=== PATIENT | female | born 1935 | race Asian ===

== ENCOUNTER 2017-08-13 14:18 | Inpatient (IN) | payer MEDICARE, OTHER ==
[~2017-08-13] VITALS: Ht 157.5 cm; Wt 54.4 kg
--- NOTE | 2017-08-13 14:24 | Emergency Room Report ---
History of Present Illness General Chief Complaint: Multiple Trauma/Fall Present Illness HPI Patient is an 82-year-old female brought in by EMS after fall at assisted living. The patient presents having increased pain to her head. She also has increased pain to her left hip. The patient poorly has prior history of Parkinson's disease. Patient had normally been ambulatory. The patient reports having had inability to ambulate. She been noted to be taking medications for Parkinson's disease. The fall occurred just prior to arrival. The per EMS there is no loss of consciousness. The patient had been given morphine and Zofran by EMS. Allergies: Coded Allergies: No Known Allergies (Unverified , 08/13/17) Patient History Past Medical History: see triage record Reviewed Nursing Documentation: PMH: Agreed; PSxH: Agreed Review of Systems All Other Systems: negative except mentioned in HPI Physical Exam Vital Signs Date Time Temp Pulse Resp B/P (MAP) Pulse Ox O2 Delivery O2 Flow Rate FiO2 08/13/17 14:16 98.0 72 16 154/82 98 Room Air 98.1 Sp02 EP Interpretation: reviewed, normal General Appearance: normal inspection, well appearing, no apparent distress, alert, Chronically Ill Head: atraumatic ENT: normal ENT inspection, hearing grossly normal, normal voice Neck: normal inspection, full range of motion, supple, no bony tend Respiratory: normal inspection, lungs clear, normal breath sounds, no respiratory distress, no retraction, no wheezing Cardiovascular #1: regular rate, rhythm, no edema Gastrointestinal: normal inspection, normal bowel sounds, non tender, soft, no guarding, no hernia Genitourinary: no CVA tenderness Musculoskeletal: normal inspection, back normal, decreased range of motion - left hip external rotation and shortening. Neurologic: normal inspection, alert, responsive, speech normal Psychiatric: normal inspection, judgement/insight normal, mood/affect normal Skin: normal inspection, normal color, no rash Medical Decision Making Diagnostic Impression: Primary Impression: Fall Additional Impressions: Intertrochanteric fracture of left femur Pain Head contusion Parkinson disease ER Course Patient is a 82-year-old female presented after fall. Differential diagnosis included was not limited to neck fracture, CVA, close head injury, syncopal episode, basilar ischemia, hip fracture,. Because of complexity of patient's case laboratory testing and imaging studies were ordered. A CT imaging read by radiology showed noted to have a left intertrochanteric fracture. Patient was discussed with Dr. Luisito Blanc for for orthopedic consult. Dr. Emiliano Ryder was contacted for inpatient management. Labs Test 08/13/17 14:45 White Blood Count 9.3 K/UL (4.8-10.8) Red Blood Count 3.23 M/UL (4.20-5.40) Hemoglobin 10.8 G/DL (12.0-16.0) Hematocrit 31.4 % (37.0-47.0) Mean Corpuscular Volume 97 FL (80-99) Mean Corpuscular Hemoglobin 33.6 PG (27.0-31.0) Mean Corpuscular Hemoglobin Concent 34.6 G/DL (32.0-36.0) Red Cell Distribution Width 12.4 % (11.6-14.8) Platelet Count 262 K/UL (150-450) Mean Platelet Volume 5.0 FL (6.5-10.1) Neutrophils (%) (Auto) 79.1 % (45.0-75.0) Lymphocytes (%) (Auto) 16.0 % (20.0-45.0) Monocytes (%) (Auto) 4.0 % (1.0-10.0) Eosinophils (%) (Auto) 0.3 % (0.0-3.0) Basophils (%) (Auto) 0.5 % (0.0-2.0) Prothrombin Time 9.9 SEC (9.30-11.50) Prothromb Time International Ratio 0.9 (0.9-1.1) Activated Partial Thromboplast Time 28 SEC (23-33) Sodium Level 139 MMOL/L (136-145) Potassium Level 4.3 MMOL/L (3.5-5.1) Chloride Level 105 MMOL/L (98-107) Carbon Dioxide Level 30 MMOL/L (21-32) Anion Gap 4 mmol/L (5-15) Blood Urea Nitrogen 21 mg/dL (7-18) Creatinine 0.6 MG/DL (0.55-1.30) Estimat Glomerular Filtration Rate mL/min (>60) Glucose Level 107 MG/DL (74-106) Calcium Level 8.7 MG/DL (8.5-10.1) Total Bilirubin 0.4 MG/DL (0.2-1.0) Aspartate Amino Transf (AST/SGOT) 44 U/L (15-37) Alanine Aminotransferase (ALT/SGPT) 8 U/L (12-78) Alkaline Phosphatase 104 U/L (46-116) Total Protein 5.8 G/DL (6.4-8.2) Albumin 3.1 G/DL (3.4-5.0) Globulin 2.7 g/dL Albumin/Globulin Ratio 1.1 (1.0-2.7) Lipase 83 U/L (73-393) EKG Diagnostic Results Rate: normal - 76 Rhythm: NSR ST Segments: no acute changes Last Vital Signs Date Time Temp Pulse Resp B/P (MAP) Pulse Ox O2 Delivery O2 Flow Rate FiO2 08/13/17 14:16 98.0 72 16 154/82 98 Room Air 98.1 Status: improved Disposition: ADMITTED INPATIENT Condition: Dane Ramos Aug 13, 2017 14:24
[2017-08-13] MEDS ORDERED: ACETAMINOPHEN325 M1 ORAL (14:26)
[2017-08-13] MEDS ORDERED: MELATONIN5 M5 ORAL (14:26)
[2017-08-13] MEDS ORDERED: MELOXICAM15 MG PO (14:26)
[2017-08-13] MEDS ORDERED: SINEMET 25-1001 EAC1 ORAL (14:29)
[2017-08-13] MEDS ORDERED: ATORVASTATIN CA20 MG ORAL (14:29)
[2017-08-13] MEDS ORDERED: GABAPENTIN300 MG ORAL (14:29)
[2017-08-13] MEDS ORDERED: FAMOTIDINE20 MG ORAL (14:29)
[2017-08-13] MEDS ORDERED: MIRTAZAPINE15 M3 ORAL (14:29)
[2017-08-13 14:50] VITALS: BP 154/82
[2017-08-13 15:25] LABS: BASOPHILS % (AUTO) 0.5 % (0.0-2.0); EOSINOPHILS % (AUTO) 0.3 % (0.0-3.0); HEMATOCRIT 31.4 % (37.0-47.0); HEMOGLOBIN 10.8 G/DL (12.0-16.0); MEAN CORPUSCULAR VOLUME 97 FL (80-99); NEUTROPHILS % (AUTO) 79.1 % (45.0-75.0); PLATELET COUNT 262 K/UL (150-450); RED BLOOD COUNT 3.23 M/UL (4.20-5.40); RED CELL DISTRIBUTION WIDTH 12.4 % (11.6-14.8); WHITE BLOOD COUNT 9.3 K/UL (4.8-10.8)
[2017-08-13 15:35] LABS: INR 0.9 (0.9-1.1)
[2017-08-13 15:38] LABS: ANION GAP 4 mmol/L (5-15); BLOOD UREA NITROGEN 21 mg/dL (7-18); CALCIUM 8.7 MG/DL (8.5-10.1); CARBON DIOXIDE 30 MMOL/L (21-32); CHLORIDE 105 MMOL/L (98-107); CREATININE 0.6 MG/DL (0.55-1.30); POTASSIUM 4.3 MMOL/L (3.5-5.1); SODIUM 139 MMOL/L (136-145)
[2017-08-13 15:43] LABS: ALANINE AMINOTRANSFERASE 8 U/L (12-78); ALBUMIN 3.1 G/DL (3.4-5.0); ALBUMIN/GLOBULIN RATIO 1.1 (1.0-2.7); ALKALINE PHOSPHATASE 104 U/L (46-116); ASPARTATE AMINO TRANSFERASE 44 U/L (15-37); BILIRUBIN,TOTAL 0.4 MG/DL (0.2-1.0)
--- NOTE | 2017-08-13 16:03 | Diagnostic Imaging Report ---
Indication: Head and left hip pain, status post fall Technique: spiral acquisitions obtained through the brain. Angled axial and coronal 5 x 5 mm slices were reconstructed. No IV contrast utilized. Radiation dose was minimized using automated exposure control Total dose length product 1432.38 mGycm. CTDIvol(s) 70.38 mGy Comparison: none FINDINGS: No acute hemorrhage or edema. No mass effect or midline shift. There is age-related enlargement of the ventricles and extra axial CSF spaces. There is periventricular deep white matter ischemic change. Normal vega-white differentiation. Visualized orbits are unremarkable. Visualized sinuses are unremarkable. Intact calvarium. IMPRESSION: Chronic and age-related changes. Negative for acute intracranial bleed or mass effect The CT scanner at [facility] is accredited by the [employer] and the scans are performed using protocols designed to limit radiation exposure to as low as reasonably achievable to attain images of sufficient resolution adequate for diagnostic evaluation
--- NOTE | 2017-08-13 16:09 | Diagnostic Imaging Report ---
Indication: Left hip pain status post fall Technique: No IV contrast, per trauma protocol Spiral acquisitions obtained through the pelvis and left hip Multiplanar reconstructions were generated. Total dose length product 348 mGycm. CTDIvol(s) 9 mGy. Radiation dose was minimized using automated exposure control Comparison: none Findings: There is a comminuted slightly angulated intertrochanteric fracture of the left hip, extending into the femoral neck. No associated pelvic fracture demonstrated. There is a right hip hemiarthroplasty prosthesis in place. There is slight contusion of the subcutaneous fat. There are degenerative changes of the lumbosacral spine The uterus demonstrates multiple small masses, consistent with uterine fibroids. The rectum is somewhat distended by feces, measuring up to 8 cm transverse dimension. The bladder is distended Impression: Positive for left hip intertrochanteric fracture Minimal overlying soft tissue contusion Evidence of prior right hip surgery Degenerative changes, as described Possible rectal fecal impaction Fibroid uterus Distended urinary bladder Findings discussed by phone previously with Dr. Lane in the emergency room The CT scanner at [facility] is accredited by the [employer] and the scans are performed using protocols designed to limit radiation exposure to as low as reasonably achievable to attain images of sufficient resolution adequate for diagnostic evaluation.
[2017-08-13] MEDS ORDERED: Morphine Sulfate 2mg/ml Inj ONE (17:13)
[2017-08-13] MEDS ORDERED: Miralax 17gm pkt ORAL PRN (17:15)
[2017-08-13] MEDS ORDERED: Mylanta II UD 30ml ORAL PRN (17:15)
[2017-08-13] MEDS ORDERED: LORazepam Inj 2mg/ml 1ml IV PRN (17:15)
[2017-08-13] MEDS ORDERED: Zolpidem 5mg tab ORAL PRN (17:15)
[2017-08-13] MEDS: Morphine Sulfate 4mg/ml Inj IVP PRN ×2 (17:25→23:38)
[2017-08-13 18:13] VITALS: BP 124/74
[2017-08-13] MEDS: D5 1/2NS 1,000 ML IV SCH (18:53)
--- NOTE | 2017-08-13 19:29 | Consultation ---
History of Present Illness General Chief Complaint: Multiple Trauma/Fall Present Illness Allergies: Coded Allergies: No Known Allergies (Unverified , 08/13/17) Medication History Scheduled Atorvastatin Calcium* (Atorvastatin Calcium*), 10 MG ORAL BEDTIME, (Reported) Carbidopa/Levodopa 25-100 Mg* (Sinemet 25-100 Mg Tablet*), 1 TAB ORAL THREE TIMES A DAY, (Reported) Famotidine (Famotidine), 20 MG ORAL DAILY, (Reported) Gabapentin* (Gabapentin*), 300 MG ORAL BEDTIME, (Reported) Meloxicam* (Meloxicam*), 15 MG PO DAILY, (Reported) Mirtazapine* (Mirtazapine*), 15 MG ORAL BEDTIME, (Reported) Scheduled PRN Acetaminophen* (Acetaminophen 325MG Tablet*), 325 MG ORAL Q4H PRN for For Pain, (Reported) Melatonin (Melatonin), 5 MG ORAL BEDTIME PRN for Insomnia, (Reported) Patient History Healthcare decision maker Resuscitation status Advanced Directive on File Physical Exam Last 24 Hour Vital Signs Date Time Temp Pulse Resp B/P (MAP) Pulse Ox O2 Delivery O2 Flow Rate FiO2 08/13/17 19:03 98.2 08/13/17 18:13 98.2 77 18 124/74 98 Room Air 98.2 08/13/17 17:25 98.0 08/13/17 14:16 98.0 72 16 154/82 98 Room Air 98.1 Laboratory Tests Test 08/13/17 14:45 White Blood Count 9.3 K/UL (4.8-10.8) Red Blood Count 3.23 M/UL (4.20-5.40) L Hemoglobin 10.8 G/DL (12.0-16.0) L Hematocrit 31.4 % (37.0-47.0) L Mean Corpuscular Volume 97 FL (80-99) Mean Corpuscular Hemoglobin 33.6 PG (27.0-31.0) H Mean Corpuscular Hemoglobin Concent 34.6 G/DL (32.0-36.0) Red Cell Distribution Width 12.4 % (11.6-14.8) Platelet Count 262 K/UL (150-450) Mean Platelet Volume 5.0 FL (6.5-10.1) L Neutrophils (%) (Auto) 79.1 % (45.0-75.0) H Lymphocytes (%) (Auto) 16.0 % (20.0-45.0) L Monocytes (%) (Auto) 4.0 % (1.0-10.0) Eosinophils (%) (Auto) 0.3 % (0.0-3.0) Basophils (%) (Auto) 0.5 % (0.0-2.0) Prothrombin Time 9.9 SEC (9.30-11.50) Prothromb Time International Ratio 0.9 (0.9-1.1) Activated Partial Thromboplast Time 28 SEC (23-33) Sodium Level 139 MMOL/L (136-145) Potassium Level 4.3 MMOL/L (3.5-5.1) Chloride Level 105 MMOL/L (98-107) Carbon Dioxide Level 30 MMOL/L (21-32) Anion Gap 4 mmol/L (5-15) L Blood Urea Nitrogen 21 mg/dL (7-18) H Creatinine 0.6 MG/DL (0.55-1.30) Estimat Glomerular Filtration Rate mL/min (>60) Glucose Level 107 MG/DL (74-106) H Calcium Level 8.7 MG/DL (8.5-10.1) Total Bilirubin 0.4 MG/DL (0.2-1.0) Aspartate Amino Transf (AST/SGOT) 44 U/L (15-37) H Alanine Aminotransferase (ALT/SGPT) 8 U/L (12-78) L Alkaline Phosphatase 104 U/L (46-116) Total Protein 5.8 G/DL (6.4-8.2) L Albumin 3.1 G/DL (3.4-5.0) L Globulin 2.7 g/dL Albumin/Globulin Ratio 1.1 (1.0-2.7) Lipase 83 U/L (73-393) Height (Feet): 5 Height (Inches): 2.00 Weight (Pounds): 120 Medications Current Medications Medications (Trade) Dose Ordered Sig/Elke Route PRN Reason Start Time Stop Time Status Last Admin Dose Admin Acetaminophen (Tylenol) 650 mg Q4H PRN ORAL fever 08/13/17 17:15 09/12/17 17:14 Al Hydroxide/Mg Hydroxide (Mylanta II) 30 ml Q6H PRN ORAL dyspepsia 08/13/17 17:15 09/12/17 17:14 Dextrose (Dextrose 50%) STAT PRN IV Hypoglycemia 08/13/17 17:15 09/12/17 17:14 Dextrose/Sodium Chloride 1,000 ml @ 50 mls/hr Q20H IV 08/13/17 17:45 09/12/17 17:44 08/13/17 18:53 Heparin Sodium (Porcine) (Heparin 5000 units/ml) 5,000 units EVERY 12 HOURS SUBQ 08/13/17 21:00 09/12/17 20:59 Lorazepam (Ativan 2mg/ml 1ml) 0.5 mg Q4H PRN IV For Anxiety 08/13/17 17:15 08/20/17 17:14 Morphine Sulfate (Morphine Sulfate) 2 mg Q4H PRN IVP For Pain 4-6 08/13/17 17:15 08/20/17 17:14 Morphine Sulfate (Morphine Sulfate) 4 mg Q4H PRN IVP For Pain 7-10 08/13/17 17:15 08/20/17 17:14 08/13/17 17:25 Ondansetron HCl (Zofran) 4 mg Q6H PRN IVP Nausea & Vomiting 08/13/17 17:15 09/12/17 17:14 Polyethylene Glycol (Miralax) 17 gm HSPRN PRN ORAL Constipation 08/13/17 17:15 09/12/17 17:14 Zolpidem Tartrate (Ambien) 5 mg HSPRN PRN ORAL Insomnia 08/13/17 17:15 08/20/17 17:14 Steve Moe MD Aug 13, 2017 19:29
[2017-08-13 20:00] VITALS: BP 118/65
--- NOTE | 2017-08-13 20:46 | History and Physical Report ---
DATE OF ADMISSION: 08/13/2017 APPROXIMATE TIME: 4 p.m. WEDGER: 1. Luisito Blanc M.D. 2. Mikey Martinez M.D. 3. Steve Moe M.D. CHIEF COMPLAINT: Fall, left hip fracture, Parkinson, weakness, possible syncope. BRIEF HISTORY: This is an 82-year-old female who lives at assisted living presented with the above-mentioned diagnoses. Unsure whether she passed out but she fell and struck her left hip, came to [facility], diagnosed with the hip fracture, being admitted shortly. Currently, calm in bed, complaining of left hip pain, . REVIEW OF SYSTEMS: No chest pain. No shortness of breath. No nausea, vomiting, or diarrhea. PAST MEDICAL HISTORY: Includes Parkinson and weakness. PAST SURGICAL HISTORY: Unknown MEDICATIONS: We will obtain list shortly. ALLERGIES: Denies. SOCIAL HISTORY: No smoking. No alcohol. No intravenous drug abuse. FAMILY HISTORY: Noncontributory. PHYSICAL EXAMINATION: GENERAL: Calm in bed, oriented x2, in no acute distress. VITAL SIGNS: Temperature 98, pulse 72, respiratory rate 16, blood pressure 154/82. CARDIOVASCULAR: No murmur. LUNGS: Distant and clear. ABDOMEN: Bowel sound positive. Nontender. Nondistended. EXTREMITIES: No cyanosis or edema. Left foot about half-inch shorter slightly, 45 degrees externally rotated. NEUROLOGIC: The patient moves all extremities but slightly weak. LABORATORY AND DIAGNOSTIC DATA: Hemoglobin 10.8, otherwise CBC is normal. BMP shows BUN and creatinine 21 and 0.6, glucose 107. AST 44, ALT 8. Albumin 3.1. INR is 0.9 and PTT 28. ASSESSMENT: 1. History of fall. 2. Weakness. 3. Left hip fracture. 4. Anemia. 5. Parkinson. PLAN: 1. Resume home medications. 2. OT/PT. 3. Dietary evaluation. 4. CBC and BMP in morning. 5. Pain control. 6. Possible surgery with Dr. Blanc. Dr. Martinez and Dr. Moe will follow up. We will continue to follow this patient medically. Emiliano Ryder D.O. DR: Taurus JOB#: [id number] CC:
[2017-08-13] MEDS ORDERED: ARTIFICIAL TEAR15 ML BOTH EYES (20:48)
[2017-08-13] MEDS: Heparin 5000 units/ml inj SUBQ SCH (21:24)
[2017-08-13] MEDS ORDERED: Artificial Tears 1.4% Op Soln BOTH EYES PRN (22:30)
[2017-08-13] MEDS ORDERED: Meclizine 25mg tab ORAL PRN (22:30)
--- NOTE | 2017-08-13 22:59 | Cardiology Progress Note ---
Assessment/Plan Assessment/Plan The patient is seen and examined, full consult note will be dictated shortly. Objective Last 24 Hour Vital Signs Date Time Temp Pulse Resp B/P (MAP) Pulse Ox O2 Delivery O2 Flow Rate FiO2 08/13/17 19:03 98.2 08/13/17 18:13 98.2 77 18 124/74 98 Room Air 98.2 08/13/17 17:25 98.0 08/13/17 17:10 112/76 08/13/17 14:50 98.1 16 154/82 98 Room Air 98.1 08/13/17 14:16 98.0 72 16 154/82 98 Room Air 98.1 Laboratory Tests Test 08/13/17 14:45 White Blood Count 9.3 K/UL (4.8-10.8) Red Blood Count 3.23 M/UL (4.20-5.40) L Hemoglobin 10.8 G/DL (12.0-16.0) L Hematocrit 31.4 % (37.0-47.0) L Mean Corpuscular Volume 97 FL (80-99) Mean Corpuscular Hemoglobin 33.6 PG (27.0-31.0) H Mean Corpuscular Hemoglobin Concent 34.6 G/DL (32.0-36.0) Red Cell Distribution Width 12.4 % (11.6-14.8) Platelet Count 262 K/UL (150-450) Mean Platelet Volume 5.0 FL (6.5-10.1) L Neutrophils (%) (Auto) 79.1 % (45.0-75.0) H Lymphocytes (%) (Auto) 16.0 % (20.0-45.0) L Monocytes (%) (Auto) 4.0 % (1.0-10.0) Eosinophils (%) (Auto) 0.3 % (0.0-3.0) Basophils (%) (Auto) 0.5 % (0.0-2.0) Prothrombin Time 9.9 SEC (9.30-11.50) Prothromb Time International Ratio 0.9 (0.9-1.1) Activated Partial Thromboplast Time 28 SEC (23-33) Sodium Level 139 MMOL/L (136-145) Potassium Level 4.3 MMOL/L (3.5-5.1) Chloride Level 105 MMOL/L (98-107) Carbon Dioxide Level 30 MMOL/L (21-32) Anion Gap 4 mmol/L (5-15) L Blood Urea Nitrogen 21 mg/dL (7-18) H Creatinine 0.6 MG/DL (0.55-1.30) Estimat Glomerular Filtration Rate mL/min (>60) Glucose Level 107 MG/DL (74-106) H Calcium Level 8.7 MG/DL (8.5-10.1) Total Bilirubin 0.4 MG/DL (0.2-1.0) Aspartate Amino Transf (AST/SGOT) 44 U/L (15-37) H Alanine Aminotransferase (ALT/SGPT) 8 U/L (12-78) L Alkaline Phosphatase 104 U/L (46-116) Total Protein 5.8 G/DL (6.4-8.2) L Albumin 3.1 G/DL (3.4-5.0) L Globulin 2.7 g/dL Albumin/Globulin Ratio 1.1 (1.0-2.7) Lipase 83 U/L (73-393) SHANTANU VARGAS Aug 13, 2017 22:59
[2017-08-14] VITALS: BP 128/69
--- NOTE | 2017-08-14 01:46 | Consultation ---
DATE OF CONSULTATION: 08/13/2017 CARDIOLOGY CONSULTATION CONSULTING PHYSICIAN: Mikey Martinez M.D. REFERRING PHYSICIAN: Emiliano Ryder D.O. REASON FOR CONSULTATION: Preoperative cardiac assessment for noncardiac surgery. HISTORY OF PRESENT ILLNESS: The patient is a very unfortunate 82-year-old female, who brought in by EMS after a fall at the assisted living facility. The patient had pain over the left hip. Initial workup in the emergency department showed intertrochanteric fracture of the left femur. She was admitted to the surgical unit in anticipation for ORIF of left hip. Cardiology consultation was made at the request of Dr. Ryder for preoperative cardiac assessment. The patient denies any prior history of coronary artery disease, congestive heart failure, and cardiac arrhythmias. Prior to this event, she was capable of walking two blocks without having shortness of breath or chest pain. PAST MEDICAL HISTORY: Parkinson disease. PAST SURGICAL HISTORY: None. MEDICATIONS: List of medication, acetaminophen 325 mg q.4 h. p.r.n. pain, atorvastatin 10 mg p.o. nightly, carbidopa and levodopa 25/100 mg one tablet three times a day, artificial tears, famotidine 20 mg p.o. daily, gabapentin 300 mg p.o. nightly, melatonin 5 mg p.o. nightly as needed for insomnia, meloxicam 50 mg p.o. daily, and mirtazapine 15 mg p.o. nightly. ALLERGIES: No known drug allergies. SOCIAL HISTORY: Denies any history of tobacco, alcohol, or illicit drug use. She is a resident of an assisted living facility. FAMILY HISTORY: No premature coronary artery disease in first-degree relatives. REVIEW OF SYSTEMS: HEENT: Denies any headache, diplopia, or blurred vision. CONSTITUTIONAL: No complaints of fever, chills, nausea, or weight loss. CVS: Denies any chest pain, shortness of breath, PND, orthopnea, leg swelling, syncope, or palpitation. PULMONARY: Denies any cough, hemoptysis, or wheezing. GASTROINTESTINAL: Denies any nausea, vomiting, diarrhea, constipation, abdominal pain, or GI bleed. GENITOURINARY: Denies any hematuria, dysuria, or incontinence. NEUROLOGIC: Denies any motor dysfunction, sensory deficit, or altered speech. MUSCULOSKELETAL: Inability to bear weight on the left leg and pain over the left hip. PHYSICAL EXAMINATION: VITAL SIGNS: Blood pressure is 154/82, respirations of 16, pulse of 72, and temperature 98.0 degrees Fahrenheit. GENERAL: The patient is a very pleasant, 82-year-old female, in no apparent respiratory distress, complains of pain over the left lower extremity. HEENT: Atraumatic and normocephalic. Anicteric. Pupils are equal, round, and reactive to light and accommodation. Extraocular movements are intact. NECK: JVP less than 5 cm. No carotid bruits. Carotid upstrokes 2+ bilaterally. CVS: Normal S1 and S2. Regular rate and rhythm. There is 2/6 mid systolic murmur at the left sternal border. PMI is at 4th intercostal space in the midclavicular line. LUNGS: Clear to auscultation bilaterally. ABDOMEN: Soft, nontender, and nondistended. No hepatosplenomegaly. Positive bowel sounds. EXTREMITIES: The left leg and left external rotation tenderness at the hip. There is no edema, clubbing, or cyanosis. LABORATORY FINDINGS: WBC 9.3, hemoglobin 10.8, hematocrit of 31.4, and platelet count is 262,000. Sodium is 139, potassium is 4.3, chloride 105, bicarbonate is 30, BUN of 31, creatinine 0.6, glucose 107, and calcium is 8.7. INR is 0.9. CT of head shows chronic and age-related changes. Negative for intracranial bleeds or mass effect. Chemistry shows sodium 139, potassium is 4.3, chloride 105, bicarbonate 30, BUN of 21, creatinine 0.6, glucose 107, and calcium is 8.6. INR is 0.9. WBC of 9.3, hemoglobin 10.8, hematocrit of 31.4, and platelet count of 262,000. A 12-lead electrocardiogram shows sinus rhythm at a rate of [address] and T-wave abnormalities, normal QT interval. ASSESSMENT AND PLAN: The patient is a very pleasant 82-year-old female, who is communicating well with me, in no apparent respiratory distress. She is expected to undergo left hip open reduction and internal fixation. She is asymptomatic from the cardiac standpoint. She was capable of tolerating more than 4 METs with her usual activities. There is no prior history of coronary artery disease or congestive heart failure. She does not have any risk factors for coronary artery disease. She is cleared for the above surgery with risk of coronary artery events preoperatively estimated to be less than 1%. I would like to thank Dr. Ryder for the courtesy of this consultation. Mikey Martinez M.D. DR: Regino JOB#: [id number] CC:
[2017-08-14] MEDS: Morphine Sulfate 4mg/ml Inj IVP PRN ×2 (04:22→12:06)
[2017-08-14 04:47] VITALS: BP 125/65
[2017-08-14 07:08] LABS: BASOPHILS % (AUTO) 0.5 % (0.0-2.0); EOSINOPHILS % (AUTO) 0.3 % (0.0-3.0); HEMATOCRIT 29.7 % (37.0-47.0); HEMOGLOBIN 9.6 G/DL (12.0-16.0); LYMPHOCYTES % (AUTO) 19.7 % (20.0-45.0); MEAN CORPUSCULAR VOLUME 100 FL (80-99); MONOCYTES % (AUTO) 9.1 % (1.0-10.0); NEUTROPHILS % (AUTO) 70.4 % (45.0-75.0); PLATELET COUNT 234 K/UL (150-450); RED BLOOD COUNT 2.98 M/UL (4.20-5.40); RED CELL DISTRIBUTION WIDTH 13.1 % (11.6-14.8); WHITE BLOOD COUNT 6.3 K/UL (4.8-10.8)
[2017-08-14 07:15] LABS: ALANINE AMINOTRANSFERASE 25 U/L (12-78); ALBUMIN 2.8 G/DL (3.4-5.0); ALKALINE PHOSPHATASE 93 U/L (46-116); ANION GAP 4 mmol/L (5-15); ASPARTATE AMINO TRANSFERASE 22 U/L (15-37); BILIRUBIN,TOTAL 0.6 MG/DL (0.2-1.0); BLOOD UREA NITROGEN 15 mg/dL (7-18); CALCIUM 7.9 MG/DL (8.5-10.1); CARBON DIOXIDE 31 MMOL/L (21-32); CHLORIDE 106 MMOL/L (98-107); CREATININE 0.5 MG/DL (0.55-1.30); POTASSIUM 3.7 MMOL/L (3.5-5.1); SODIUM 140 MMOL/L (136-145)
[2017-08-14 07:48] VITALS: BP 105/61
[2017-08-14] MEDS: Meloxicam 15 MG TAB ORAL SCH (08:08)
[2017-08-14] MEDS: Levodopa/Carbidopa 25/100 tab ORAL SCH ×3 (08:08→17:12)
[2017-08-14] MEDS: Heparin 5000 units/ml inj SUBQ SCH ×2 (08:15→21:16)
--- NOTE | 2017-08-14 08:43 | Consultation ---
Consult Note Consult Note 82 yo female resident at assisted living with possible syncopal fall and left hip femoral neck fracture CT reviewed. Xrays ordered hx of Parkinson's Assessment/Plan left hip femoral neck fracture plan for left hip hemiarthroplasty tomorrow 6:45am. NPO tonight. cardiology clearance and 2D echo full note dictated CMAPOS KELLEY Aug 14, 2017 08:43
--- NOTE | 2017-08-14 09:59 | Diagnostic Imaging Report ---
Indication: pain Pelvic trauma and pain Findings: Single AP view of the pelvis was performed. There is a bipolar right hip hemiarthroplasty demonstrated. There is a comminuted intertrochanteric fracture of the left hip with moderate varus angulation present. There is also suspected fracture of the intracapsular portion of the left hip with involvement of the femoral neck. The bones are osteopenic. The sacrum is obscured by bowel gas and stool. Briscoe catheter is noted. IMPRESSION: Unusual acute fracture involving both the left intertrochanteric region and the intracapsular portion of the femoral neck.
[2017-08-14 12:00] VITALS: BP 118/64
[2017-08-14] MEDS: D5 1/2NS 1,000 ML IV SCH (12:10)
--- NOTE | 2017-08-14 14:04 | Anethesia Preoperative Eval ---
Anesthesia Pre-op PMH/ROS General Date of Evaluation: Aug 14, 2017 Time of Evaluation: 14:03 Anesthesiologist: CON ASA Score: ASA 2 Mallampati Score Class I : Soft palate, uvula, fauces, pillars visible Class II: Soft palate, uvula, fauces visible Class III: Soft palate, base of uvula visible Class IV: Only hard plate visible Mallampati Classification: Class II Surgeon: Cynthia Diagnosis: Left hip OA Surgical Procedure: Left hip hemiarthroplasty Anesthesia History: none Family History: no anesthesia problems Allergies: Coded Allergies: No Known Allergies (Unverified , 08/13/17) Medications: see eMAR Anesthesia Pre-op Phys. Exam Physician Exam Last Vital Signs Date Time Temp Pulse Resp B/P (MAP) Pulse Ox O2 Delivery O2 Flow Rate FiO2 08/14/17 12:36 97.1 08/14/17 12:00 79 17 118/64 96 Room Air Constitutional: NAD Neurologic: CN 2-12 intact Cardiovascular: RRR Respiratory: CTA Airway Exam Mallampati Score: Class II MO: full Teeth: intact Anesthesia Pre-op A/P Labs Hematology Test 08/13/17 14:45 08/14/17 05:40 White Blood Count 9.3 K/UL (4.8-10.8) 6.3 K/UL (4.8-10.8) Red Blood Count 3.23 M/UL (4.20-5.40) L 2.98 M/UL (4.20-5.40) L Hemoglobin 10.8 G/DL (12.0-16.0) L 9.6 G/DL (12.0-16.0) L Hematocrit 31.4 % (37.0-47.0) L 29.7 % (37.0-47.0) L Mean Corpuscular Volume 97 FL (80-99) 100 FL (80-99) H Mean Corpuscular Hemoglobin 33.6 PG (27.0-31.0) H 32.2 PG (27.0-31.0) H Mean Corpuscular Hemoglobin Concent 34.6 G/DL (32.0-36.0) 32.3 G/DL (32.0-36.0) Red Cell Distribution Width 12.4 % (11.6-14.8) 13.1 % (11.6-14.8) Platelet Count 262 K/UL (150-450) 234 K/UL (150-450) Mean Platelet Volume 5.0 FL (6.5-10.1) L 5.3 FL (6.5-10.1) L Neutrophils (%) (Auto) 79.1 % (45.0-75.0) H 70.4 % (45.0-75.0) Lymphocytes (%) (Auto) 16.0 % (20.0-45.0) L 19.7 % (20.0-45.0) L Monocytes (%) (Auto) 4.0 % (1.0-10.0) 9.1 % (1.0-10.0) Eosinophils (%) (Auto) 0.3 % (0.0-3.0) 0.3 % (0.0-3.0) Basophils (%) (Auto) 0.5 % (0.0-2.0) 0.5 % (0.0-2.0) Coagulation Test 08/13/17 14:45 Prothrombin Time 9.9 SEC (9.30-11.50) Prothromb Time International Ratio 0.9 (0.9-1.1) Activated Partial Thromboplast Time 28 SEC (23-33) Chemistry Test 08/13/17 14:45 08/14/17 05:40 Sodium Level 139 MMOL/L (136-145) 140 MMOL/L (136-145) Potassium Level 4.3 MMOL/L (3.5-5.1) 3.7 MMOL/L (3.5-5.1) Chloride Level 105 MMOL/L (98-107) 106 MMOL/L (98-107) Carbon Dioxide Level 30 MMOL/L (21-32) 31 MMOL/L (21-32) Anion Gap 4 mmol/L (5-15) L 4 mmol/L (5-15) L Blood Urea Nitrogen 21 mg/dL (7-18) H 15 mg/dL (7-18) Creatinine 0.6 MG/DL (0.55-1.30) 0.5 MG/DL (0.55-1.30) L Estimat Glomerular Filtration Rate mL/min (>60) mL/min (>60) Glucose Level 107 MG/DL (74-106) H 109 MG/DL (74-106) H Calcium Level 8.7 MG/DL (8.5-10.1) 7.9 MG/DL (8.5-10.1) L Total Bilirubin 0.4 MG/DL (0.2-1.0) 0.6 MG/DL (0.2-1.0) Aspartate Amino Transf (AST/SGOT) 44 U/L (15-37) H 22 U/L (15-37) Alanine Aminotransferase (ALT/SGPT) 8 U/L (12-78) L 25 U/L (12-78) Alkaline Phosphatase 104 U/L (46-116) 93 U/L (46-116) Total Protein 5.8 G/DL (6.4-8.2) L 5.6 G/DL (6.4-8.2) L Albumin 3.1 G/DL (3.4-5.0) L 2.8 G/DL (3.4-5.0) L Globulin 2.7 g/dL 2.8 g/dL Albumin/Globulin Ratio 1.1 (1.0-2.7) 1.0 (1.0-2.7) Lipase 83 U/L (73-393) Thyroid Stimulating Hormone (TSH) 1.550 uiU/mL (0.358-3.740) Risk Assessment & Plan Plan: GA Status Change Before Surgery: No Pre-Antibiotics Given Within 1 Hr of Incision: Basil Jean Baptiste M.D. Aug 14, 2017 14:04
--- NOTE | 2017-08-14 14:31 | General Progress Note ---
Assessment/Plan Problem List: (1) Parkinson disease ICD Codes: G20 - Parkinson's disease SNOMED: 73918838 (2) Fall ICD Codes: W19.XXXA - Unspecified fall, initial encounter SNOMED: 6046520, 984303753 (3) Intertrochanteric fracture of left femur ICD Codes: S72.142A - Displaced intertrochanteric fracture of left femur, initial encounter for closed fracture SNOMED: 423732496, 931326455 (4) Pain ICD Codes: R52 - Pain, unspecified SNOMED: 35335976 Status: unchanged Assessment/Plan ot pt diet pending sx, cbc bmp am Subjective Constitutional: Reports: weakness Allergies: Coded Allergies: No Known Allergies (Unverified , 08/13/17) All Systems: reviewed and negative except above Subjective calm in bed Objective Last 24 Hour Vital Signs Date Time Temp Pulse Resp B/P (MAP) Pulse Ox O2 Delivery O2 Flow Rate FiO2 08/14/17 12:36 97.1 08/14/17 12:06 97.1 08/14/17 12:00 98.7 79 17 118/64 96 Room Air 98.7 08/14/17 07:48 97.1 81 16 105/61 95 Room Air 97.1 08/14/17 04:47 98.3 78 18 125/65 95 Room Air 98.3 08/14/17 00:00 98.0 80 19 128/69 98 Room Air 98.0 08/13/17 20:00 98.0 78 18 118/65 98 Room Air 98.0 08/13/17 19:03 98.2 08/13/17 18:13 98.2 77 18 124/74 98 Room Air 98.2 08/13/17 17:25 98.0 08/13/17 17:10 112/76 08/13/17 14:50 98.1 16 154/82 98 Room Air 98.1 Intake and Output 08/13/17 08/14/17 19:00 07:00 Intake Total 600 ml Output Total 1000 ml Balance -400 ml IV Total 600 ml Output Urine Total 1000 ml Laboratory Tests 08/13/17 14:45: White Blood Count 9.3, Red Blood Count 3.23L, Hemoglobin 10.8L, Hematocrit 31.4L , Mean Corpuscular Volume 97, Mean Corpuscular Hemoglobin 33.6H, Mean Corpuscular Hemoglobin Concent 34.6, Red Cell Distribution Width 12.4, Platelet Count 262, Mean Platelet Volume 5.0L, Neutrophils (%) (Auto) 79.1H, Lymphocytes (%) (Auto) 16.0L, Monocytes (%) (Auto) 4.0, Eosinophils (%) (Auto) 0.3, Basophils (%) (Auto) 0.5, Prothrombin Time 9.9, Prothromb Time International Ratio 0.9, Activated Partial Thromboplast Time 28, Sodium Level 139, Potassium Level 4.3, Chloride Level 105, Carbon Dioxide Level 30, Anion Gap 4L, Blood Urea Nitrogen 21H, Creatinine 0.6, Estimat Glomerular Filtration Rate , Glucose Level 107H, Calcium Level 8.7, Total Bilirubin 0.4, Aspartate Amino Transf (AST/ SGOT) 44H, Alanine Aminotransferase (ALT/SGPT) 8L, Alkaline Phosphatase 104, Total Protein 5.8L, Albumin 3.1L, Globulin 2.7, Albumin/Globulin Ratio 1.1, Lipase 83 08/14/17 05:40: White Blood Count 6.3, Red Blood Count 2.98L, Hemoglobin 9.6L, Hematocrit 29.7L , Mean Corpuscular Volume 100H, Mean Corpuscular Hemoglobin 32.2H, Mean Corpuscular Hemoglobin Concent 32.3, Red Cell Distribution Width 13.1, Platelet Count 234, Mean Platelet Volume 5.3L, Neutrophils (%) (Auto) 70.4, Lymphocytes ( %) (Auto) 19.7L, Monocytes (%) (Auto) 9.1, Eosinophils (%) (Auto) 0.3, Basophils (%) (Auto) 0.5, Sodium Level 140, Potassium Level 3.7, Chloride Level 106, Carbon Dioxide Level 31, Anion Gap 4L, Blood Urea Nitrogen 15, Creatinine 0.5L, Estimat Glomerular Filtration Rate , Glucose Level 109H, Calcium Level 7.9L, Total Bilirubin 0.6, Aspartate Amino Transf (AST/SGOT) 22, Alanine Aminotransferase (ALT/SGPT) 25, Alkaline Phosphatase 93, Total Protein 5.6L, Albumin 2.8L, Globulin 2.8, Albumin/Globulin Ratio 1.0, Thyroid Stimulating Hormone (TSH) 1.550 Height (Feet): 5 Height (Inches): 2.00 Weight (Pounds): 120 General Appearance: alert EENT: normal ENT inspection Neck: normal alignment Cardiovascular: normal peripheral pulses, normal rate, regular rhythm Respiratory/Chest: chest wall non-tender, lungs clear, normal breath sounds Extremities: normal inspection Edema: no edema noted Arm (L), no edema noted Arm (R), no edema noted Leg (L), no edema noted Leg (R), no edema noted Pedal (L), no edema noted Pedal (R), no edema noted Generalized Neurologic: responsive, motor weakness Skin: normal pigmentation, warm/dry CSOME CISNEROS Aug 14, 2017 14:30
--- NOTE | 2017-08-14 15:47 | Cardiology Report ---
APPROVED REPORT EXAM: Two-dimensional and M-mode echocardiogram with Doppler and color Doppler. INDICATION Pre-Op M-Mode DIMENSIONS IVSd0.8 (0.7-1.1cm)Left Atrium (MM)3.0 (1.6-4.0cm) LVDd3.9 (3.5-5.6cm)Aortic Root2.9 (2.0-3.7cm) PWd0.7 (0.7-1.1cm)Aortic Cusp Exc.1.7 (1.5-2.0cm) LVDs2.5 (2.5-4.0cm) PWs1.2 cm Normal left ventricular chamber size, systolic function and wall motion. Left ventricular ejection fraction estimated to be 60-65 %. No evidence of left ventricular hypertrophy. Anterior Echo-free space, may be due to pericardial fat or effusion. All other cardiac chamber sizes are within normal limits. Mild focal aortic valve sclerosis with adequate cusp excursion. Mildly thickened mitral valve leaflets with normal excursion. Mild mitral annulus and aortic root calcification. Normal pulmonic valve structure. Normal tricuspid valve structure. IVC measures at 1.8 with physiological collapse. A color flow and spectral Doppler study was performed and revealed: Mild to moderate aortic insufficiency. Mild to moderate mitral regurgitation. Mitral diastolic velocities suggest mild left ventricular diastolic dysfunction (Grade I). Mild tricuspid regurgitation. Tricuspid systolic velocities suggests peak right ventricular systolic pressure of 43 mmHg, consistent with mild pulmonary hypertension. No pulmonic regurgitation present.
[2017-08-14 16:00] VITALS: BP 118/64
--- NOTE | 2017-08-14 16:15 | Pulmonology Progress Note ---
Assessment/Plan Problems: (1) Anemia (2) Parkinson disease (3) Pain (4) Intertrochanteric fracture of left femur Assessment/Plan symptomatic treatment surgery for follow dvt prophylaxis pt/ot after surgery anemia w/u Subjective ROS Limited/Unobtainable: No Constitutional: Reports: no symptoms HEENT: Repors: no symptoms Respiratory: Reports: no symptoms Allergies: Coded Allergies: No Known Allergies (Unverified , 08/13/17) Objective Last 24 Hour Vital Signs Date Time Temp Pulse Resp B/P (MAP) Pulse Ox O2 Delivery O2 Flow Rate FiO2 08/14/17 16:00 98.0 76 18 118/64 98 Room Air 98.0 08/14/17 12:36 97.1 08/14/17 12:06 97.1 08/14/17 12:00 98.7 79 17 118/64 96 Room Air 98.7 08/14/17 07:48 97.1 81 16 105/61 95 Room Air 97.1 08/14/17 04:47 98.3 78 18 125/65 95 Room Air 98.3 08/14/17 00:00 98.0 80 19 128/69 98 Room Air 98.0 08/13/17 20:00 98.0 78 18 118/65 98 Room Air 98.0 08/13/17 19:03 98.2 08/13/17 18:13 98.2 77 18 124/74 98 Room Air 98.2 08/13/17 17:25 98.0 08/13/17 17:10 112/76 Intake and Output 08/13/17 08/14/17 19:00 07:00 Intake Total 600 ml Output Total 1000 ml Balance -400 ml IV Total 600 ml Output Urine Total 1000 ml Objective General Appearance: WD/WN Lines, tubes and drains: peripheral HEENT: normocephalic, atraumatic Neck: non-tender, normal alignment Respiratory/Chest: chest wall non-tender, lungs clear Breasts: no masses Cardiovascular/Chest: normal rate, regularly irregular Genitourinary/Rectal: normal genital exam, heme negative stool Extremities: normal range of motion Laboratory Tests 08/14/17 05:40: White Blood Count 6.3, Red Blood Count 2.98L, Hemoglobin 9.6L, Hematocrit 29.7L , Mean Corpuscular Volume 100H, Mean Corpuscular Hemoglobin 32.2H, Mean Corpuscular Hemoglobin Concent 32.3, Red Cell Distribution Width 13.1, Platelet Count 234, Mean Platelet Volume 5.3L, Neutrophils (%) (Auto) 70.4, Lymphocytes ( %) (Auto) 19.7L, Monocytes (%) (Auto) 9.1, Eosinophils (%) (Auto) 0.3, Basophils (%) (Auto) 0.5, Sodium Level 140, Potassium Level 3.7, Chloride Level 106, Carbon Dioxide Level 31, Anion Gap 4L, Blood Urea Nitrogen 15, Creatinine 0.5L, Estimat Glomerular Filtration Rate , Glucose Level 109H, Calcium Level 7.9L, Total Bilirubin 0.6, Aspartate Amino Transf (AST/SGOT) 22, Alanine Aminotransferase (ALT/SGPT) 25, Alkaline Phosphatase 93, Total Protein 5.6L, Albumin 2.8L, Globulin 2.8, Albumin/Globulin Ratio 1.0, Thyroid Stimulating Hormone (TSH) 1.550 Current Medications Medications (Trade) Dose Ordered Sig/Elke Route PRN Reason Start Time Stop Time Status Last Admin Dose Admin Acetaminophen (Tylenol) 650 mg Q4H PRN ORAL fever 08/13/17 17:15 09/12/17 17:14 Al Hydroxide/Mg Hydroxide (Mylanta II) 30 ml Q6H PRN ORAL dyspepsia 08/13/17 17:15 09/12/17 17:14 Artificial Tears (Akwa-Tears) 1 drop BID PRN BOTH EYES DRY EYES 08/13/17 22:30 09/12/17 22:29 Atorvastatin Calcium (Lipitor) 10 mg DAILY ORAL 08/14/17 09:00 09/13/17 08:59 08/14/17 08:08 Carbidopa/Levodopa (Sinemet 25/100) 1 tab THREE TIMES A DAY ORAL 08/14/17 09:00 09/13/17 08:59 08/14/17 12:08 Dextrose (Dextrose 50%) 25 ml STAT PRN IV HYPOGLYCEMIA 08/14/17 09:15 09/13/17 09:14 Dextrose (Dextrose 50%) 50 ml STAT PRN IV Hypoglycemia 08/14/17 09:15 09/12/17 17:14 Dextrose/Sodium Chloride 1,000 ml @ 50 mls/hr Q20H IV 08/13/17 17:45 09/12/17 17:44 08/14/17 12:10 Famotidine (Pepcid) 20 mg DAILY ORAL 08/14/17 09:00 09/13/17 08:59 08/14/17 08:08 Gabapentin (Neurontin) 300 mg BEDTIME ORAL 08/14/17 21:00 09/13/17 20:59 Heparin Sodium (Porcine) (Heparin 5000 units/ml) 5,000 units EVERY 12 HOURS SUBQ 08/13/17 21:00 09/12/17 20:59 08/14/17 08:15 Lorazepam (Ativan 2mg/ml 1ml) 0.5 mg Q4H PRN IV For Anxiety 08/13/17 17:15 08/20/17 17:14 Meclizine HCl (Antivert) 25 mg Q12H PRN ORAL FOR VERTIGO 08/13/17 22:30 09/12/17 22:29 Meloxicam (Mobic) 15 mg DAILY ORAL 08/14/17 09:00 09/13/17 08:59 08/14/17 08:08 Mirtazapine (Remeron) 15 mg DAILY ORAL 08/14/17 09:00 09/13/17 08:59 08/14/17 08:08 Morphine Sulfate (Morphine Sulfate) 2 mg Q4H PRN IVP For Pain 4-6 08/13/17 17:15 08/20/17 17:14 08/14/17 12:06 Morphine Sulfate (Morphine Sulfate) 4 mg Q4H PRN IVP For Pain 7-10 08/13/17 17:15 08/20/17 17:14 08/14/17 04:22 Non-Formulary Medication (Non-Formulary Med) 1 ea BEDTIME ORAL 08/14/17 21:00 09/13/17 20:59 UNV Ondansetron HCl (Zofran) 4 mg Q6H PRN IVP Nausea & Vomiting 08/13/17 17:15 09/12/17 17:14 Polyethylene Glycol (Miralax) 17 gm HSPRN PRN ORAL Constipation 08/13/17 17:15 09/12/17 17:14 Zolpidem Tartrate (Ambien) 5 mg HSPRN PRN ORAL Insomnia 08/13/17 17:15 08/20/17 17:14 08/13/17 21:23 Steve Moe MD Aug 14, 2017 16:15
--- NOTE | 2017-08-14 16:37 | Cardiology Report ---
APPROVED REPORT EKG Measurement Heart [id number] Normal sinus rhythm Normal ECG
[2017-08-14 20:00] VITALS: BP 119/70
--- NOTE | 2017-08-14 20:00 | Consultation ---
DATE OF CONSULTATION: 08/14/2017 ORTHOPEDIC CONSULTATION CONSULTING PHYSICIAN: Luisito Blanc M.D. ATTENDING PHYSICIAN: Emiliano Ryder D.O. HISTORY OF PRESENT ILLNESS: The patient is a pleasant 82-year-old female, who lives in assisted living, who apparently had a fall and possible syncopal episode and she struck her left hip and was unable to get up. She was transferred to [facility] ER where she was noted to have a left hip femoral neck fracture. Orthopedic consult has been called for surgical intervention. PAST MEDICAL HISTORY: Parkinson disease. PAST SURGICAL HISTORY: Right hip hemiarthroplasty. CURRENT MEDICATIONS: Please see chart. ALLERGIES: None. SOCIAL HISTORY: She lives in assisted living residence and does normally ambulates fairly independently on her own, although does need assistance with daily activities. PHYSICAL EXAMINATION: GENERAL: She is a very pleasant woman. She is cooperative with examination. MUSCULOSKELETAL: She has tenderness over the left hip with very painful motion. There is no evidence of any skin swelling or evidence of skin breakdown. No signs of infection. She is neurovascularly intact. IMAGING: CT scan is reviewed, there is femoral neck fracture and greater tuberosity fracture. AP pelvis x-ray will also be ordered. IMPRESSION: Left hip femoral neck fracture. DISCUSSION: At this time, I discussed with the patient and nursing my findings. Recommended to go forward with left hip hemiarthroplasty. We will then getting this set up for tomorrow. She will have medical clearance as well as cardiology clearance and a 2D echo done for her preoperatively. She will be NPO tonight, but can eat today. Nature of the surgery was discussed with her including what is involved with surgery itself as well as rehab and recovery. She had a right hip hemiarthroplasty in the past, so she does understand the protocol. Risks of infection, bleeding, neurovascular complications, possible risk of DVT and PE were discussed with her as well as the risk of fracture, dislocation, hardware failure, leg length discrepancy, and need for revision surgery down the line. She understands and she would like to get this done and we will try to get her on the surgical schedule for tomorrow and we will follow along with her. Thank you for allowing me to participate in the care of this patient. If there are any questions or concerns, please do not hesitate to contact me. Luisito Blanc M.D. Dhruv Padilla DR: BARAK JOB#: [id number] CC: SHANDRA
--- NOTE | 2017-08-14 23:52 | Cardiology Progress Note ---
Assessment/Plan Assessment/Plan 1. Left hip fracture, s/p Left hip ORIF, no perioperative cardiac events, 12 lead ECG in am, continue DVT prophylaxis. 2. Anemia. 3. Mild pulmonary HTN. Subjective Subjective Not on the telemetry bed. Denies CP or SOB. s/p left hip ORIF POD #0 Objective Last 24 Hour Vital Signs Date Time Temp Pulse Resp B/P (MAP) Pulse Ox O2 Delivery O2 Flow Rate FiO2 08/14/17 20:00 98.9 93 16 119/70 95 Room Air 98.9 08/14/17 16:00 98.0 76 18 118/64 98 Room Air 98.0 08/14/17 12:36 97.1 08/14/17 12:06 97.1 08/14/17 12:00 98.7 79 17 118/64 96 Room Air 98.7 08/14/17 07:48 97.1 81 16 105/61 95 Room Air 97.1 08/14/17 04:47 98.3 78 18 125/65 95 Room Air 98.3 08/14/17 00:00 98.0 80 19 128/69 98 Room Air 98.0 Intake and Output 08/13/17 08/14/17 19:00 07:00 Intake Total 600 ml Output Total 1000 ml Balance -400 ml IV Total 600 ml Output Urine Total 1000 ml 2D Echo: LVEF 60-65%, Mild AR/MR, RVSP 45 mmHg, Grade I LVDD Laboratory Tests Test 08/14/17 05:40 White Blood Count 6.3 K/UL (4.8-10.8) Red Blood Count 2.98 M/UL (4.20-5.40) L Hemoglobin 9.6 G/DL (12.0-16.0) L Hematocrit 29.7 % (37.0-47.0) L Mean Corpuscular Volume 100 FL (80-99) H Mean Corpuscular Hemoglobin 32.2 PG (27.0-31.0) H Mean Corpuscular Hemoglobin Concent 32.3 G/DL (32.0-36.0) Red Cell Distribution Width 13.1 % (11.6-14.8) Platelet Count 234 K/UL (150-450) Mean Platelet Volume 5.3 FL (6.5-10.1) L Neutrophils (%) (Auto) 70.4 % (45.0-75.0) Lymphocytes (%) (Auto) 19.7 % (20.0-45.0) L Monocytes (%) (Auto) 9.1 % (1.0-10.0) Eosinophils (%) (Auto) 0.3 % (0.0-3.0) Basophils (%) (Auto) 0.5 % (0.0-2.0) Sodium Level 140 MMOL/L (136-145) Potassium Level 3.7 MMOL/L (3.5-5.1) Chloride Level 106 MMOL/L (98-107) Carbon Dioxide Level 31 MMOL/L (21-32) Anion Gap 4 mmol/L (5-15) L Blood Urea Nitrogen 15 mg/dL (7-18) Creatinine 0.5 MG/DL (0.55-1.30) L Estimat Glomerular Filtration Rate mL/min (>60) Glucose Level 109 MG/DL (74-106) H Calcium Level 7.9 MG/DL (8.5-10.1) L Total Bilirubin 0.6 MG/DL (0.2-1.0) Aspartate Amino Transf (AST/SGOT) 22 U/L (15-37) Alanine Aminotransferase (ALT/SGPT) 25 U/L (12-78) Alkaline Phosphatase 93 U/L (46-116) Total Protein 5.6 G/DL (6.4-8.2) L Albumin 2.8 G/DL (3.4-5.0) L Globulin 2.8 g/dL Albumin/Globulin Ratio 1.0 (1.0-2.7) Thyroid Stimulating Hormone (TSH) 1.550 uiU/mL (0.358-3.740) Objective HEENT: Atraumatic and normocephalic. Anicteric. Pupils are equal, round, and reactive to light and accommodation. Extraocular movements are intact. NECK: JVP less than 5 cm. No carotid bruits. Carotid upstrokes 2+ bilaterally. CVS: Normal S1 and S2. Regular rate and rhythm. There is 2/6 mid systolic murmur at the left sternal border. PMI is at 4th intercostal space in the midclavicular line. LUNGS: Clear to auscultation bilaterally. ABDOMEN: Soft, nontender, and nondistended. No hepatosplenomegaly. Positive bowel sounds. EXTREMITIES: The left leg and left external rotation tenderness at the hip. There is no edema, clubbing, or cyanosis. SHANTANU VARGAS Aug 14, 2017 23:52
[2017-08-15] VITALS (13 sets, daily range): BP systolic 100–162; BP diastolic 46–79
[2017-08-15] MEDS: Morphine Sulfate 4mg/ml Inj IVP PRN (03:01)
[2017-08-15] MEDS ORDERED: Bacitracin 50000 Units Vial ONE (06:27)
[2017-08-15] MEDS ORDERED: Duramorph PF 5mg/10ml amp ONE (06:27)
[2017-08-15] MEDS ORDERED: NeoSporin Gu Irrig 1ml Amp IRRIG ONE (06:27)
[2017-08-15] MEDS ORDERED: Bupivacaine 0.5% Inj 30 ml vial INJ ONE (06:27)
[2017-08-15] MEDS ORDERED: Tranexamic Acid 500 MG in NS 55 ML IVPB ONE (06:30)
--- NOTE | 2017-08-15 06:51 | Pre-Procedure Note/Attestation ---
Pre-Procedure Note/Attestation Complete Prior to Procedure Planned Procedure: left Procedure Narrative: left hip hemiarthroplasty Indications for Procedure Pre-Operative Diagnosis: left hip femoral neck fracture Attestation I attest that I discussed the nature of the procedure; its benefits; risks and complications; and alternatives (and the risks and benefits of such alternatives ), prior to the procedure, with the patient (or the patient's legal market survey representative). I attest that, if there was a reasonable possibility of needing a blood transfusion, the patient (or the patient's legal market survey representative) was given the [facility] standardized written summary, pursuant to the Aden Eli Blood Safety Act ([place] Health and Safety Code # 1645, as amended). I attest that I re-evaluated the patient just prior to the surgery and that there has been no change in the patient's H&P, except as documented below:NONE CHRIS OSHEA Aug 15, 2017 06:51
[2017-08-15] MEDS ORDERED: NS Irrig 2000ml IRRIG ONE ×2 (07:00→08:00)
[2017-08-15] MEDS ORDERED: Bacitracin 50000 Units Vial IRRIG ONE ×2 (07:00)
[2017-08-15] MEDS ORDERED: Tranexamic Acid 1000mg-Patients>50kg (1st Dose) IVPB ONE ×2 (07:00)
[2017-08-15] MEDS ORDERED: LR 1000ml 1,000 ML IVLG SCH (07:57)
[2017-08-15] MEDS ORDERED: Propofol 200mg/20ml IV ONE (08:00)
[2017-08-15] MEDS ORDERED: Sterile Water For Irrig 2000ml IRRIG ONE (08:00)
[2017-08-15] MEDS ORDERED: fentaNYL 100 mcg/2 mL IV ONE (08:00)
[2017-08-15] MEDS ORDERED: LR 1000ml ONE (08:00)
[2017-08-15] MEDS ORDERED: DiphenhydrAMINE 50mg/ml Inj IVP PRN (08:00)
[2017-08-15] MEDS ORDERED: Midazolam 2mg/2ml Inj ONE (08:00)
[2017-08-15] MEDS ORDERED: Ketorolac 30mg Inj IV PRN (08:00)
[2017-08-15] MEDS ORDERED: NS Irrig 1000ml ONE (08:00)
[2017-08-15] MEDS ORDERED: Midazolam 2mg/2ml Inj IVP PRN (08:00)
[2017-08-15] MEDS ORDERED: Hydromorphone 0.5mg/0.5ml inj IVP PRN (08:00)
--- NOTE | 2017-08-15 08:53 | Brief Operative Note ---
Immediate Post Operative Note Operative Note Chief Complaint: left hip pain Pre-op Diagnosis: left hip fracture Procedure: left hip hemiarthroplasty Post-op Diagnosis: same as pre-op Findings: consistent w/pre-op dx studies Surgeon: md elisha Space Physicist: leilani salgado Anesthesiologist: md bryant Anesthesia: general Specimen: yes Complications: none Condition: stable Fluids: ns Estimated Blood Loss: minimal Drains: none Implant(s) used?: Yes - CAMPOS Hobbs Aug 15, 2017 08:53
[2017-08-15] MEDS: Levodopa/Carbidopa 25/100 tab ORAL SCH (09:00)
[2017-08-15] MEDS: Heparin 5000 units/ml inj SUBQ SCH (09:00)
[2017-08-15] MEDS: celeBREX 200mg Cap **SURGERY PATIENTS ONLY ORAL SCH (09:00)
[2017-08-15] MEDS: Meloxicam 15 MG TAB ORAL SCH (09:00)
--- NOTE | 2017-08-15 09:04 | Immediate Post-Op Evaluation ---
Immediate Post-Op Evalulation Immediate Post-Op Evalulation Procedure: L hip hemiarthroplasty Date of Evaluation: Aug 15, 2017 Time of Evaluation: 09:03 IV Fluids: 1200 Blood Products: Albumin 250 Estimated Blood Loss: 250 Urinary Output: 100 Blood Pressure Systolic: 154 Blood Pressure Diastolic: 86 Pulse Rate: 72 Respiratory Rate: 20 O2 Sat by Pulse Oximetry: 99 Temperature (Fahrenheit): 98.4 Pain Score (1-10): 2 Nausea: No Vomiting: No Complications none Patient Status: reacts, patent, none Hydration Status: adequate JOSE MANUEL PAZ M.D. Aug 15, 2017 09:04
[2017-08-15] MEDS: D5 1/2NS 1,000 ML IV SCH (09:45)
[2017-08-15 12:42] LABS: BASOPHILS % (AUTO) 0.4 % (0.0-2.0); EOSINOPHILS % (AUTO) 0.1 % (0.0-3.0); HEMATOCRIT 24.7 % (37.0-47.0); MEAN CORPUSCULAR VOLUME 100 FL (80-99); MONOCYTES % (AUTO) 7.2 % (1.0-10.0); NEUTROPHILS % (AUTO) 77.4 % (45.0-75.0); PLATELET COUNT 195 K/UL (150-450); RED BLOOD COUNT 2.47 M/UL (4.20-5.40); RED CELL DISTRIBUTION WIDTH 12.8 % (11.6-14.8)
--- NOTE | 2017-08-15 12:50 | General Progress Note ---
Assessment/Plan Problem List: (1) Parkinson disease ICD Codes: G20 - Parkinson's disease SNOMED: 66802878 (2) Fall ICD Codes: W19.XXXA - Unspecified fall, initial encounter SNOMED: 9626899, 936655812 (3) Intertrochanteric fracture of left femur ICD Codes: S72.142A - Displaced intertrochanteric fracture of left femur, initial encounter for closed fracture SNOMED: 881002680, 595419276 (4) Pain ICD Codes: R52 - Pain, unspecified SNOMED: 68659903 Status: stable, progressing Assessment/Plan ot pt diet, cbc bmp am aru eval Subjective Constitutional: Reports: weakness Allergies: Coded Allergies: No Known Allergies (Unverified , 08/13/17) All Systems: reviewed and negative except above Subjective o2nc sleepy s/p sx Objective Last 24 Hour Vital Signs Date Time Temp Pulse Resp B/P (MAP) Pulse Ox O2 Delivery O2 Flow Rate FiO2 08/15/17 11:17 98.8 84 20 133/76 100 Nasal Cannula 3.0 98.8 08/15/17 10:16 98.2 86 20 135/79 98 Nasal Cannula 3.0 98.2 08/15/17 09:45 99.3 83 15 155/54 100 Nasal Cannula 3.0 99.3 08/15/17 09:31 98.3 08/15/17 09:31 82 13 162/67 99 Nasal Cannula 3.0 08/15/17 09:25 80 18 162/57 99 Simple Mask 6.0 08/15/17 09:15 82 14 150/56 99 Simple Mask 6.0 08/15/17 09:05 81 15 154/64 98 Simple Mask 6.0 08/15/17 09:04 209.1 72 20 99 08/15/17 09:00 80 15 146/46 100 Simple Mask 6.0 08/15/17 08:55 101.0 79 16 159/54 100 Simple Mask 6.0 101.0 08/15/17 04:00 99.5 98 16 100/57 96 Room Air 99.5 08/15/17 00:00 98.9 91 16 123/70 96 Room Air 98.9 08/14/17 20:00 98.9 93 16 119/70 95 Room Air 98.9 08/14/17 16:00 98.0 76 18 118/64 98 Room Air 98.0 Intake and Output 08/14/17 08/15/17 19:00 07:00 Intake Total 1030 ml 550 ml Output Total 550 ml 550 ml Balance 480 ml 0 ml Intake Oral 480 ml IV Total 550 ml 550 ml Output Urine Total 550 ml 550 ml Laboratory Tests 08/15/17 12:17: White Blood Count [Pending], Red Blood Count [Pending], Hemoglobin [Pending], Hematocrit [Pending], Mean Corpuscular Volume [Pending], Mean Corpuscular Hemoglobin [Pending], Mean Corpuscular Hemoglobin Concent [Pending], Red Cell Distribution Width [Pending], Platelet Count [Pending], Mean Platelet Volume [ Pending], Neutrophils (%) (Auto) [Pending], Lymphocytes (%) (Auto) [Pending], Monocytes (%) (Auto) [Pending], Eosinophils (%) (Auto) [Pending], Basophils (%) (Auto) [Pending], Erythrocyte Sedimentation Rate [Pending], Reticulocyte Count [ Pending], Prothrombin Time [Pending], Prothromb Time International Ratio [ Pending], Activated Partial Thromboplast Time [Pending], Sodium Level [Pending] , Potassium Level [Pending], Chloride Level [Pending], Carbon Dioxide Level [ Pending], Blood Urea Nitrogen [Pending], Creatinine [Pending], Estimat Glomerular Filtration Rate [Pending], Glucose Level [Pending], Calcium Level [ Pending], Iron Level [Pending], Unsaturated Iron Binding [Pending], Lactate Dehydrogenase [Pending], Vitamin B12 Level [Pending], Folate [Pending] Height (Feet): 5 Height (Inches): 2.00 Weight (Pounds): 120 General Appearance: lethargic EENT: normal ENT inspection Neck: normal alignment Cardiovascular: normal peripheral pulses, normal rate, regular rhythm Respiratory/Chest: chest wall non-tender, lungs clear, normal breath sounds Abdomen: normal bowel sounds, non tender, soft Extremities: normal inspection Edema: no edema noted Arm (L), no edema noted Arm (R), no edema noted Leg (L), no edema noted Leg (R), no edema noted Pedal (L), no edema noted Pedal (R), no edema noted Generalized Neurologic: motor weakness Skin: normal pigmentation, warm/dry COSME CISNEROS Aug 15, 2017 12:50
[2017-08-15] MEDS ORDERED: Milk of Magnesia 30ml Ud ORAL PRN (13:00)
[2017-08-15 13:12] LABS: ANION GAP 3 mmol/L (5-15); BLOOD UREA NITROGEN 12 mg/dL (7-18); CALCIUM 7.5 MG/DL (8.5-10.1); CARBON DIOXIDE 29 MMOL/L (21-32); CHLORIDE 105 MMOL/L (98-107); CREATININE 0.4 MG/DL (0.55-1.30); POTASSIUM 3.8 MMOL/L (3.5-5.1); SODIUM 137 MMOL/L (136-145)
[2017-08-15 13:16] LABS: % IRON SATURATION 10 % (15-50); IRON 19 ug/dL (50-175); LACTATE DEHYDROGENASE 175 U/L (81-234); TOTAL IRON BINDING CAPACITY 187 ug/dL (250-450)
[2017-08-15] MEDS: D5 1/2NS w/KCl 20mEq 1,000 ML IV SCH (15:40)
[2017-08-15] MEDS: ceFAZolin sod 2 GM in D5W 110 ML IV SCH ×2 (16:37→23:29)
--- NOTE | 2017-08-15 17:20 | Diagnostic Imaging Report ---
Indication: Fracture Technique: Intraoperative images obtained during left hip arthroplasty. Comparison: 08/14/2017 Findings: Intraoperative images of the left hip were obtained. Right hip arthroplasty partially visualized and unchanged in position. Briscoe catheter noted in place. Last image demonstrates interval placement of a left bipolar hip arthroplasty. Bowel gas pattern is nonspecific. Impression: Intraoperative images from left hip hemiarthroplasty. Please see operative report.
--- NOTE | 2017-08-15 17:22 | Diagnostic Imaging Report ---
Indication: Postop Technique: XRAY Pelvis 1v Comparison: 08/14/2017 Findings: Interval placement of left hip hemiarthroplasty. Subcutaneous gas compatible with recent surgery. No new acute fractures identified. Right hip hemiarthroplasty unchanged in appearance. Briscoe catheter in place. Bowel gas pattern is nonspecific. Impression: Interval left hip hemiarthroplasty. No evidence of hardware-related complication. Subcutaneous gas compatible with recent surgery. No new acute fracture.
[2017-08-15] MEDS: Docusate 100mg cap ORAL SCH (18:00)
--- NOTE | 2017-08-15 18:30 | Operative Note - Dictated ---
DATE OF OPERATION: 08/15/2017 PREOPERATIVE DIAGNOSIS: Left hip femoral neck fracture with extension to the greater trochanter with greater trochanteric fracture. POSTOPERATIVE DIAGNOSIS: Left hip femoral neck fracture with extension to the greater trochanter with greater trochanteric fracture. PROCEDURE: Left hip hemiarthroplasty using a [place] Secur-Fit 127-degree angle, size 9 Press-Fit stem with a 35 mm neck length and with a 43-mm bipolar component with size 26 mm head with 0 offset standard neck length. SURGEON: Luisito Blanc M.D. PROGRAM DIRECTOR/AIR PERSONALITY: Danielle Diaz PA-C. ANESTHESIOLOGIST: Hira Messer M.D. ANESTHESIA: General LMA anesthesia. ESTIMATED BLOOD LOSS: Less than 150 mL. COMPLICATIONS: None. BRIEF HISTORY: The patient is a pleasant 82-year-old female, who sustained a fall and sustained a fracture of the left hip. After full discussion of the risks and benefits of the surgery and complications of the surgery including infection, bleeding, neurovascular complication, possibility of malunion, possibility of nonunion, possibility of dislocation, possibility of infection requiring resection arthroplasty, possibility of DVT, PE, leg-length discrepancy, inability to walk, and pain despite surgery, she opted for surgical treatment as described above. OPERATIVE PROCEDURE: The patient was brought to the operative table and was placed supine. All pressure points were well padded. General LMA anesthesia was induced. The patient was placed in the right lateral decubitus position with the left hip up. She was stabilized with a pegboard and all pressure points were well padded. The left hip was prepped and draped in usual sterile fashion. A standard posterolateral approach to the hip was undertaken after time-out was performed and the appropriate preoperative antibiotic was given. The skin was opened and subcutaneous tissue was dissected with Bovie. The tensor fascia was released and gluteal fascia was released. A Charnley retractor was placed in. There was extensive hematoma from the fracture of the greater trochanter. This was evacuated. The fracture of the trochanter was in stable position. It was not really displaced. At this point, the hip was internally rotated and the short external rotators were released and the capsule was T'd and they were tagged with #2 FiberWire sutures for later closure. The fracture was visualized. This was a subcapital femoral neck fracture with extension into the greater trochanter. The head and neck were removed. The greater trochanteric fascia was visualized and extended slightly below the calcar level on the lateral side. At this point in time, the acetabulum was inspected and there were no loose fragments. The acetabulum was thoroughly irrigated using copious amount of fluid. The bone fragments were removed. At this point, care was given to the femoral side. A canal finder was used to find the canal. Sequential broaching was performed initially with Accolade stem. However, the Accolade stem was unstable due to the fascia of the greater trochanter. Therefore, it was switched to a Secur-Fit Max 127-degree angle hip system. This was performed and sequential broaching was performed all the way to size 9 broach. This provided excellent stability both axially and rotationally. The greater trochanteric piece was reduced to its natural position. The greater trochanteric piece was stable. At this point, a standard neck length and 43 mm bipolar component was assembled and the entire construct was reduced. The leg lengths appeared to be equal. Range of motion was checked and appeared to be excellent. Internal and external rotation was checked and appeared to be excellent. The stability was checked at zero, 30 degrees, 45 degrees, and 90 degrees of flexion all the way up to be about 80 degrees internal rotation with excellent stability without dislocation. At this point, intraoperative x-rays were obtained and fit was excellent. At this point, the hip was dislocated and trial stems were removed. The wounds were thoroughly irrigated using Simpulse irrigation. Size 9 Secur-Fit Max 127-degree angle stem was then placed in with a standard offset. This seated where the broach quite seated before and there was excellent axial and rotational stability. At this point, a standard neck length and 43-mm bipolar components were assembled and Ascencio taper was dried and entire construct was locked in and Ascencio taper was locked in. The entire construct was reduced and again, the leg length was checked and appeared to be perfect. The range of motion was checked and appeared to be perfect. Stability was checked and was excellent at zero, 30 degrees, 45 degrees, and 90 degrees of flexion with neutral abduction all the way up to 75 to 80 degrees of internal rotation. External rotation was stable. At this point, wounds were thoroughly irrigated using copious amount of fluid. The short external rotators were repaired back onto the greater trochanteric, which further stabilized the greater trochanteric. The hip was placed to full range of motion and the greater trochanteric was completely stable. The wounds were thoroughly irritated using copious amount of fluid. Tensor fascia was closed using #1 Vicryl suture, subcutaneous tissue was closed using 2-0 Vicryl suture, and the skin was closed using 3-0 Monocryl suture, and Dermabond was applied. Sterile dressing was applied and abduction pillow was applied and the patient was taken to recovery room in stable condition. Prior to removing the patient, intraoperative x-rays were obtained and it appeared to be well reduced in excellent position with actual stem and bipolar components. Postoperative x-rays will be obtained in the recovery room. The patient was taken to the recovery room in stable condition. All lap counts and instrument counts were correct. Luisito Blanc M.D. DR: ELEAZAR JOB#: [id number] CC: SHANDRA
[2017-08-15] MEDS: Enoxaparin 30mg Inj SUBQ SCH (18:31)
[2017-08-15] MEDS: HYDROcodone/Acetamin 7.5/325 tab ORAL PRN (21:00)
--- NOTE | 2017-08-15 23:41 | Cardiology Progress Note ---
Assessment/Plan Assessment/Plan 1. Left hip fracture, s/p Left hip ORIF, POD # 2, no perioperative cardiac events, continue DVT prophylaxis. 2. Anemia. 3. Mild pulmonary HTN. Subjective Subjective Denies CP or SOB. s/p left hip ORIF POD #1 Objective Last 24 Hour Vital Signs Date Time Temp Pulse Resp B/P (MAP) Pulse Ox O2 Delivery O2 Flow Rate FiO2 08/15/17 20:00 100.2 112 18 119/63 98 Nasal Cannula 3.0 100.2 08/15/17 16:23 97.8 99 21 133/72 100 Nasal Cannula 3.0 97.8 08/15/17 11:17 98.8 84 20 133/76 100 Nasal Cannula 3.0 98.8 08/15/17 10:16 98.2 86 20 135/79 98 Nasal Cannula 3.0 98.2 08/15/17 09:45 99.3 83 15 155/54 100 Nasal Cannula 3.0 99.3 08/15/17 09:31 98.3 08/15/17 09:31 82 13 162/67 99 Nasal Cannula 3.0 08/15/17 09:25 80 18 162/57 99 Simple Mask 6.0 08/15/17 09:15 82 14 150/56 99 Simple Mask 6.0 08/15/17 09:05 81 15 154/64 98 Simple Mask 6.0 08/15/17 09:04 209.1 72 20 99 08/15/17 09:00 80 15 146/46 100 Simple Mask 6.0 08/15/17 08:55 101.0 79 16 159/54 100 Simple Mask 6.0 101.0 08/15/17 04:00 99.5 98 16 100/57 96 Room Air 99.5 08/15/17 00:00 98.9 91 16 123/70 96 Room Air 98.9 Intake and Output 08/14/17 08/15/17 19:00 07:00 Intake Total 1030 ml 550 ml Output Total 550 ml 550 ml Balance 480 ml 0 ml Intake Oral 480 ml IV Total 550 ml 550 ml Output Urine Total 550 ml 550 ml 2D Echo: LVEF 60-65%, Mild AR/MR, RVSP 45 mmHg, Grade I LVDD Laboratory Tests Test 08/15/17 12:17 White Blood Count 9.0 K/UL (4.8-10.8) Red Blood Count 2.47 M/UL (4.20-5.40) L Hemoglobin 8.0 G/DL (12.0-16.0) L Hematocrit 24.7 % (37.0-47.0) L Mean Corpuscular Volume 100 FL (80-99) H Mean Corpuscular Hemoglobin 32.4 PG (27.0-31.0) H Mean Corpuscular Hemoglobin Concent 32.4 G/DL (32.0-36.0) Red Cell Distribution Width 12.8 % (11.6-14.8) Platelet Count 195 K/UL (150-450) Mean Platelet Volume 4.8 FL (6.5-10.1) L Neutrophils (%) (Auto) 77.4 % (45.0-75.0) H Lymphocytes (%) (Auto) 15.0 % (20.0-45.0) L Monocytes (%) (Auto) 7.2 % (1.0-10.0) Eosinophils (%) (Auto) 0.1 % (0.0-3.0) Basophils (%) (Auto) 0.4 % (0.0-2.0) Differential Total Cells Counted 100 Neutrophils % (Manual) 77 % (45-75) H Lymphocytes % (Manual) 15 % (20-45) L Monocytes % (Manual) 8 % (1-10) Eosinophils % (Manual) 0 % (0-3) Basophils % (Manual) 0 % (0-2) Band Neutrophils 0 % (0-8) Platelet Estimate Adequate Platelet Morphology Normal Erythrocyte Sedimentation Rate 40 MM/HR (0-42) Reticulocyte Count 2.1 % (0.0-2.0) H Prothrombin Time 10.1 SEC (9.30-11.50) Prothromb Time International Ratio 1.0 (0.9-1.1) Activated Partial Thromboplast Time 28 SEC (23-33) Sodium Level 137 MMOL/L (136-145) Potassium Level 3.8 MMOL/L (3.5-5.1) Chloride Level 105 MMOL/L (98-107) Carbon Dioxide Level 29 MMOL/L (21-32) Anion Gap 3 mmol/L (5-15) L Blood Urea Nitrogen 12 mg/dL (7-18) Creatinine 0.4 MG/DL (0.55-1.30) L Estimat Glomerular Filtration Rate mL/min (>60) Glucose Level 123 MG/DL (74-106) H Calcium Level 7.5 MG/DL (8.5-10.1) L Iron Level 19 ug/dL (50-175) L Total Iron Binding Capacity 187 ug/dL (250-450) L Percent Iron Saturation 10 % (15-50) L Unsaturated Iron Binding 168 ug/dL (112-346) Lactate Dehydrogenase 175 U/L (81-234) Vitamin B12 Level 294 PG/ML (193-986) Folate 16.2 NG/ML (8.6-58.9) Objective HEENT: Atraumatic and normocephalic. Anicteric. Pupils are equal, round, and reactive to light and accommodation. Extraocular movements are intact. NECK: JVP less than 5 cm. No carotid bruits. Carotid upstrokes 2+ bilaterally. CVS: Normal S1 and S2. Regular rate and rhythm. There is 2/6 mid systolic murmur at the left sternal border. PMI is at 4th intercostal space in the midclavicular line. LUNGS: Clear to auscultation bilaterally. ABDOMEN: Soft, nontender, and nondistended. No hepatosplenomegaly. Positive bowel sounds. EXTREMITIES: The left leg and left external rotation tenderness at the hip. There is no edema, clubbing, or cyanosis. SHANTANU VARGAS Aug 15, 2017 23:41
[2017-08-16] VITALS (11 sets, daily range): BP systolic 83–117; BP diastolic 43–68
[2017-08-16] MEDS: D5 1/2NS w/KCl 20mEq 1,000 ML IV SCH ×2 (04:10→16:38)
[2017-08-16] MEDS: HYDROcodone/Acetamin 7.5/325 tab ORAL PRN ×3 (06:20→21:00)
[2017-08-16 07:22] LABS: HEMATOCRIT 22.6 % (37.0-47.0); HEMOGLOBIN 7.4 G/DL (12.0-16.0); MEAN CORPUSCULAR VOLUME 100 FL (80-99); PLATELET COUNT 201 K/UL (150-450); RED BLOOD COUNT 2.25 M/UL (4.20-5.40); RED CELL DISTRIBUTION WIDTH 12.5 % (11.6-14.8); WHITE BLOOD COUNT 8.9 K/UL (4.8-10.8)
--- NOTE | 2017-08-16 07:35 | Orthopedic Progress Note ---
Orthopedic - Progress Note Subjective Symptoms: improved Objective Vital Signs Laboratory Tests Test 08/15/17 12:17 08/16/17 06:35 White Blood Count 9.0 K/UL (4.8-10.8) 8.9 K/UL (4.8-10.8) Red Blood Count 2.47 M/UL (4.20-5.40) L 2.25 M/UL (4.20-5.40) L Hemoglobin 8.0 G/DL (12.0-16.0) L 7.4 G/DL (12.0-16.0) L Hematocrit 24.7 % (37.0-47.0) L 22.6 % (37.0-47.0) L Mean Corpuscular Volume 100 FL (80-99) H 100 FL (80-99) H Mean Corpuscular Hemoglobin 32.4 PG (27.0-31.0) H 32.8 PG (27.0-31.0) H Mean Corpuscular Hemoglobin Concent 32.4 G/DL (32.0-36.0) 32.8 G/DL (32.0-36.0) Red Cell Distribution Width 12.8 % (11.6-14.8) 12.5 % (11.6-14.8) Platelet Count 195 K/UL (150-450) 201 K/UL (150-450) Mean Platelet Volume 4.8 FL (6.5-10.1) L 5.4 FL (6.5-10.1) L Neutrophils (%) (Auto) 77.4 % (45.0-75.0) H % (45.0-75.0) Lymphocytes (%) (Auto) 15.0 % (20.0-45.0) L % (20.0-45.0) Monocytes (%) (Auto) 7.2 % (1.0-10.0) % (1.0-10.0) Eosinophils (%) (Auto) 0.1 % (0.0-3.0) % (0.0-3.0) Basophils (%) (Auto) 0.4 % (0.0-2.0) % (0.0-2.0) Differential Total Cells Counted 100 Neutrophils % (Manual) 77 % (45-75) H Pending Lymphocytes % (Manual) 15 % (20-45) L Pending Monocytes % (Manual) 8 % (1-10) Eosinophils % (Manual) 0 % (0-3) Basophils % (Manual) 0 % (0-2) Band Neutrophils 0 % (0-8) Platelet Estimate Adequate Pending Platelet Morphology Normal Pending Erythrocyte Sedimentation Rate 40 MM/HR (0-42) Reticulocyte Count 2.1 % (0.0-2.0) H Prothrombin Time 10.1 SEC (9.30-11.50) Prothromb Time International Ratio 1.0 (0.9-1.1) Activated Partial Thromboplast Time 28 SEC (23-33) Sodium Level 137 MMOL/L (136-145) Pending Potassium Level 3.8 MMOL/L (3.5-5.1) Pending Chloride Level 105 MMOL/L (98-107) Pending Carbon Dioxide Level 29 MMOL/L (21-32) Pending Anion Gap 3 mmol/L (5-15) L Blood Urea Nitrogen 12 mg/dL (7-18) Pending Creatinine 0.4 MG/DL (0.55-1.30) L Pending Estimat Glomerular Filtration Rate mL/min (>60) Pending Glucose Level 123 MG/DL (74-106) H Pending Calcium Level 7.5 MG/DL (8.5-10.1) L Pending Iron Level 19 ug/dL (50-175) L Total Iron Binding Capacity 187 ug/dL (250-450) L Percent Iron Saturation 10 % (15-50) L Unsaturated Iron Binding 168 ug/dL (112-346) Lactate Dehydrogenase 175 U/L (81-234) Vitamin B12 Level 294 PG/ML (193-986) Folate 16.2 NG/ML (8.6-58.9) Last 24 Hour Vital Signs Date Time Temp Pulse Resp B/P (MAP) Pulse Ox O2 Delivery O2 Flow Rate FiO2 08/16/17 04:00 99.1 105 18 117/58 98 Nasal Cannula 3.0 99.1 08/16/17 00:00 98.6 98 18 111/59 99 Nasal Cannula 3.0 98.6 08/15/17 20:00 100.2 112 18 119/63 98 Nasal Cannula 3.0 100.2 08/15/17 16:23 97.8 99 21 133/72 100 Nasal Cannula 3.0 97.8 08/15/17 11:17 98.8 84 20 133/76 100 Nasal Cannula 3.0 98.8 08/15/17 10:16 98.2 86 20 135/79 98 Nasal Cannula 3.0 98.2 08/15/17 09:45 99.3 83 15 155/54 100 Nasal Cannula 3.0 99.3 08/15/17 09:31 98.3 08/15/17 09:31 82 13 162/67 99 Nasal Cannula 3.0 08/15/17 09:25 80 18 162/57 99 Simple Mask 6.0 08/15/17 09:15 82 14 150/56 99 Simple Mask 6.0 08/15/17 09:05 81 15 154/64 98 Simple Mask 6.0 08/15/17 09:04 209.1 72 20 99 08/15/17 09:00 80 15 146/46 100 Simple Mask 6.0 08/15/17 08:55 101.0 79 16 159/54 100 Simple Mask 6.0 101.0 I&O Intake and Output 08/15/17 08/16/17 19:00 07:00 Intake Total 1695 ml 935 ml Output Total 1100 ml 600 ml Balance 595 ml 335 ml Intake Oral 185 ml IV Total 1260 ml 935 ml Other 250 ml Output Urine Total 850 ml 600 ml Estimated Blood Loss 250 ml Wound: clean, dry, intact Drains: none Neuro Status: normal Vascular Status: normal Additional Comments XRAY EXCELLENT Assessment Post-op Diagnosis POD 1 Procedure Performed left hip hemiarthroplasty Plan Plan: PT, discharge plan - WILL LIKELY NEED SNF ON D/C. TO F/U WITH DR OSHEA 2 WEEKS AFTER D/C. , other - TRANSFUSE 2 UNITS PRBCS. FOLLOW H&H IN AM CAMPOS KELLEY Aug 16, 2017 07:35
[2017-08-16 07:37] LABS: ANION GAP 1 mmol/L (5-15); BLOOD UREA NITROGEN 10 mg/dL (7-18); CALCIUM 7.8 MG/DL (8.5-10.1); CARBON DIOXIDE 31 MMOL/L (21-32); CHLORIDE 101 MMOL/L (98-107); CREATININE 0.5 MG/DL (0.55-1.30); POTASSIUM 3.8 MMOL/L (3.5-5.1); SODIUM 133 MMOL/L (136-145)
[2017-08-16] MEDS: celeBREX 200mg Cap **SURGERY PATIENTS ONLY ORAL SCH (08:35)
[2017-08-16] MEDS: Enoxaparin 30mg Inj SUBQ SCH (08:39)
[2017-08-16] MEDS: Docusate 100mg cap ORAL SCH ×3 (08:42→17:30)
[2017-08-16] MEDS ORDERED: Sodium Chloride 500ML 500 ML IV ONE (10:30)
--- NOTE | 2017-08-16 11:57 | 48 Hour Post Anesthesia Eval ---
Post Anesthesia Evaluation Procedure: L hip hemiarthroplasty Date of Evaluation: Aug 16, 2017 Time of Evaluation: 07:10 Blood Pressure Systolic: 117 0: 58 Pulse Rate: 105 Respiratory Rate: 18 Temperature (Fahrenheit): 99.1 O2 Sat by Pulse Oximetry: 98 Airway: patent Nausea: No Vomiting: No Pain Intensity: 2 Hydration Status: adequate Cardiopulmonary Status: a baseline Mental Status/LOC: patient returned to baseline Post-Anesthesia Complications: 0 Follow-up care needed: N/A - further care as per primary team ANTONIO MELENDEZ M.D. Aug 16, 2017 11:57
--- NOTE | 2017-08-16 12:46 | General Progress Note ---
Assessment/Plan Problem List: (1) Parkinson disease ICD Codes: G20 - Parkinson's disease SNOMED: 42568424 (2) Fall ICD Codes: W19.XXXA - Unspecified fall, initial encounter SNOMED: 3649520, 845880619 (3) Intertrochanteric fracture of left femur ICD Codes: S72.142A - Displaced intertrochanteric fracture of left femur, initial encounter for closed fracture SNOMED: 418578530, 067042256 (4) Pain ICD Codes: R52 - Pain, unspecified SNOMED: 41701153 Status: unchanged Assessment/Plan ot pt diet,transfuse cbc bmp am aru eval Subjective Constitutional: Reports: weakness Allergies: Coded Allergies: No Known Allergies (Unverified , 08/13/17) All Systems: reviewed and negative except above Subjective o2nc sleepy s/p sx Objective Last 24 Hour Vital Signs Date Time Temp Pulse Resp B/P (MAP) Pulse Ox O2 Delivery O2 Flow Rate FiO2 08/16/17 11:57 210.4 105 18 98 08/16/17 11:50 98.1 08/16/17 11:40 98.1 75 18 98/46 100 Nasal Cannula 3.0 98.1 08/16/17 11:00 97.9 77 18 83/43 96 Nasal Cannula 3.0 97.9 08/16/17 10:30 87 88/48 08/16/17 10:30 97.9 62 18 89/48 97 Nasal Cannula 3.0 97.9 08/16/17 09:06 97.9 08/16/17 08:36 97.9 08/16/17 08:00 97.9 98 20 113/66 98 Nasal Cannula 3.0 97.9 08/16/17 04:00 99.1 105 18 117/58 98 Nasal Cannula 3.0 99.1 08/16/17 00:00 98.6 98 18 111/59 99 Nasal Cannula 3.0 98.6 08/15/17 20:00 100.2 112 18 119/63 98 Nasal Cannula 3.0 100.2 08/15/17 16:23 97.8 99 21 133/72 100 Nasal Cannula 3.0 97.8 Intake and Output 08/15/17 08/16/17 19:00 07:00 Intake Total 1695 ml 935 ml Output Total 1100 ml 600 ml Balance 595 ml 335 ml Intake Oral 185 ml IV Total 1260 ml 935 ml Other 250 ml Output Urine Total 850 ml 600 ml Estimated Blood Loss 250 ml Laboratory Tests 08/16/17 06:35: White Blood Count 8.9, Red Blood Count 2.25L, Hemoglobin 7.4L, Hematocrit 22.6L , Mean Corpuscular Volume 100H, Mean Corpuscular Hemoglobin 32.8H, Mean Corpuscular Hemoglobin Concent 32.8, Red Cell Distribution Width 12.5, Platelet Count 201, Mean Platelet Volume 5.4L, Neutrophils (%) (Auto) , Lymphocytes (%) ( Auto) , Monocytes (%) (Auto) , Eosinophils (%) (Auto) , Basophils (%) (Auto) , Differential Total Cells Counted 100, Neutrophils % (Manual) 83H, Lymphocytes % (Manual) 13L, Monocytes % (Manual) 4, Eosinophils % (Manual) 0, Basophils % ( Manual) 0, Band Neutrophils 0, Platelet Estimate Adequate, Platelet Morphology Normal, Hypochromasia 1+, Macrocytosis 1+, Sodium Level 133L, Potassium Level 3.8, Chloride Level 101, Carbon Dioxide Level 31, Anion Gap 1L, Blood Urea Nitrogen 10, Creatinine 0.5L, Estimat Glomerular Filtration Rate , Glucose Level 167H, Calcium Level 7.8L Height (Feet): 5 Height (Inches): 2.00 Weight (Pounds): 120 General Appearance: lethargic EENT: normal ENT inspection Neck: normal alignment Cardiovascular: normal peripheral pulses, normal rate, regular rhythm Respiratory/Chest: chest wall non-tender, lungs clear, normal breath sounds Abdomen: normal bowel sounds, non tender, soft Extremities: normal inspection Edema: no edema noted Arm (L), no edema noted Arm (R), no edema noted Leg (L), no edema noted Leg (R), no edema noted Pedal (L), no edema noted Pedal (R), no edema noted Generalized Neurologic: motor weakness Skin: normal pigmentation, warm/dry COSME CISNEROS Aug 16, 2017 12:46
--- NOTE | 2017-08-16 16:12 | Pulmonology Progress Note ---
Assessment/Plan Problems: (1) Anemia (2) Parkinson disease (3) Pain (4) Intertrochanteric fracture of left femur Assessment/Plan symptomatic treatment surgery was completed dvt prophylaxis pt/ot after surgery anemia w/u Subjective ROS Limited/Unobtainable: No Interval Events: late note for 08/15. pt tolerated the procedure well. Constitutional: Reports: no symptoms HEENT: Repors: no symptoms Allergies: Coded Allergies: No Known Allergies (Unverified , 08/13/17) Objective Last 24 Hour Vital Signs Date Time Temp Pulse Resp B/P (MAP) Pulse Ox O2 Delivery O2 Flow Rate FiO2 08/16/17 15:09 98.2 08/16/17 14:39 98.2 08/16/17 14:30 98.1 88 20 109/60 Room Air 98.1 08/16/17 13:45 98.2 89 18 110/61 94 Room Air 98.2 08/16/17 12:49 99.1 08/16/17 11:57 210.4 105 18 98 08/16/17 11:50 98.1 08/16/17 11:40 98.1 75 18 98/46 100 Nasal Cannula 3.0 98.1 08/16/17 11:30 97.9 87 19 88/48 98 Nasal Cannula 3.0 97.9 08/16/17 11:00 97.9 77 18 83/43 96 Nasal Cannula 3.0 97.9 08/16/17 10:30 87 88/48 08/16/17 10:30 97.9 62 18 89/48 97 Nasal Cannula 3.0 97.9 08/16/17 08:36 97.9 08/16/17 08:00 97.9 98 20 113/66 98 Nasal Cannula 3.0 97.9 08/16/17 04:00 99.1 105 18 117/58 98 Nasal Cannula 3.0 99.1 08/16/17 00:00 98.6 98 18 111/59 99 Nasal Cannula 3.0 98.6 08/15/17 20:00 100.2 112 18 119/63 98 Nasal Cannula 3.0 100.2 08/15/17 16:23 97.8 99 21 133/72 100 Nasal Cannula 3.0 97.8 Intake and Output 08/15/17 08/16/17 19:00 07:00 Intake Total 1695 ml 935 ml Output Total 1100 ml 600 ml Balance 595 ml 335 ml Intake Oral 185 ml IV Total 1260 ml 935 ml Other 250 ml Output Urine Total 850 ml 600 ml Estimated Blood Loss 250 ml Objective General Appearance: WD/WN Lines, tubes and drains: peripheral HEENT: normocephalic, atraumatic Neck: non-tender, normal alignment Respiratory/Chest: chest wall non-tender, lungs clear Breasts: no masses Cardiovascular/Chest: normal rate, regularly irregular Genitourinary/Rectal: normal genital exam, heme negative stool Extremities: normal range of motion Microbiology Date/Time Source Procedure Growth Status 08/14/17 04:25 Nasal Nares MRSA Culture - Final NO METHICILLIN RESISTANT STAPH AUREUS... Complete 08/14/17 04:25 Rectum VRE Culture - Final NO VANCOMYCIN RESISTANT ENTEROCOCCUS ... Complete Laboratory Tests 08/16/17 06:35: White Blood Count 8.9, Red Blood Count 2.25L, Hemoglobin 7.4L, Hematocrit 22.6L , Mean Corpuscular Volume 100H, Mean Corpuscular Hemoglobin 32.8H, Mean Corpuscular Hemoglobin Concent 32.8, Red Cell Distribution Width 12.5, Platelet Count 201, Mean Platelet Volume 5.4L, Neutrophils (%) (Auto) , Lymphocytes (%) ( Auto) , Monocytes (%) (Auto) , Eosinophils (%) (Auto) , Basophils (%) (Auto) , Differential Total Cells Counted 100, Neutrophils % (Manual) 83H, Lymphocytes % (Manual) 13L, Monocytes % (Manual) 4, Eosinophils % (Manual) 0, Basophils % ( Manual) 0, Band Neutrophils 0, Platelet Estimate Adequate, Platelet Morphology Normal, Hypochromasia 1+, Macrocytosis 1+, Sodium Level 133L, Potassium Level 3.8, Chloride Level 101, Carbon Dioxide Level 31, Anion Gap 1L, Blood Urea Nitrogen 10, Creatinine 0.5L, Estimat Glomerular Filtration Rate , Glucose Level 167H, Calcium Level 7.8L Current Medications Medications (Trade) Dose Ordered Sig/Elke Route PRN Reason Start Time Stop Time Status Last Admin Dose Admin Acetaminophen (Tylenol) 650 mg Q4H PRN ORAL Mild Pain (Pain Scale 1-3) 08/15/17 13:00 09/14/17 12:59 Acetaminophen/ Hydrocodone Bitart ([place] 7.5/325) 1 tab Q4H PRN ORAL Moderate Pain (Pain Scale 4-6) 08/15/17 13:00 08/22/17 12:59 08/16/17 11:50 Bisacodyl (Dulcolax) 10 mg Q12H PRN RECTAL Constipation 08/15/17 13:00 09/14/17 12:59 Celecoxib (CeleBREX) 200 mg DAILY ORAL 08/15/17 09:00 09/14/17 08:59 08/16/17 08:35 Dextrose/ Electrolytes 1,000 ml @ 75 mls/hr [id number] IV 08/15/17 13:30 09/14/17 13:29 08/16/17 04:10 Docusate Sodium (Colace) 100 mg THREE TIMES A DAY ORAL 08/15/17 18:00 09/14/17 17:59 08/16/17 12:38 Enoxaparin Sodium (Lovenox) 30 mg DAILY SUBQ 08/15/17 18:00 09/14/17 17:59 08/16/17 08:39 Hydromorphone HCl (Dilaudid) 1 mg Q4H PRN SUBQ Mild Pain (Pain Scale 1-3) 08/15/17 13:00 08/22/17 12:59 08/16/17 14:39 Magnesium Hydroxide (Mom) 30 ml DAILYPRN PRN ORAL Constipation 08/15/17 13:00 09/14/17 12:59 Steve Moe MD Aug 16, 2017 16:12
--- NOTE | 2017-08-16 16:14 | Pulmonology Progress Note ---
Assessment/Plan Problems: (1) Anemia (2) Parkinson disease (3) Pain (4) Intertrochanteric fracture of left femur Assessment/Plan symptomatic treatment surgery was completed dvt prophylaxis pt/ot after surgery anemia w/u dc planning Subjective ROS Limited/Unobtainable: No Constitutional: Reports: no symptoms Allergies: Coded Allergies: No Known Allergies (Unverified , 08/13/17) Objective Last 24 Hour Vital Signs Date Time Temp Pulse Resp B/P (MAP) Pulse Ox O2 Delivery O2 Flow Rate FiO2 08/16/17 15:09 98.2 08/16/17 14:39 98.2 08/16/17 14:30 98.1 88 20 109/60 Room Air 98.1 08/16/17 13:45 98.2 89 18 110/61 94 Room Air 98.2 08/16/17 12:49 99.1 08/16/17 11:57 210.4 105 18 98 08/16/17 11:50 98.1 08/16/17 11:40 98.1 75 18 98/46 100 Nasal Cannula 3.0 98.1 08/16/17 11:30 97.9 87 19 88/48 98 Nasal Cannula 3.0 97.9 08/16/17 11:00 97.9 77 18 83/43 96 Nasal Cannula 3.0 97.9 08/16/17 10:30 87 88/48 08/16/17 10:30 97.9 62 18 89/48 97 Nasal Cannula 3.0 97.9 08/16/17 08:36 97.9 08/16/17 08:00 97.9 98 20 113/66 98 Nasal Cannula 3.0 97.9 08/16/17 04:00 99.1 105 18 117/58 98 Nasal Cannula 3.0 99.1 08/16/17 00:00 98.6 98 18 111/59 99 Nasal Cannula 3.0 98.6 08/15/17 20:00 100.2 112 18 119/63 98 Nasal Cannula 3.0 100.2 08/15/17 16:23 97.8 99 21 133/72 100 Nasal Cannula 3.0 97.8 Intake and Output 08/15/17 08/16/17 19:00 07:00 Intake Total 1695 ml 935 ml Output Total 1100 ml 600 ml Balance 595 ml 335 ml Intake Oral 185 ml IV Total 1260 ml 935 ml Other 250 ml Output Urine Total 850 ml 600 ml Estimated Blood Loss 250 ml Objective General Appearance: WD/WN Lines, tubes and drains: peripheral HEENT: normocephalic, atraumatic Neck: non-tender, normal alignment Respiratory/Chest: chest wall non-tender, lungs clear Breasts: no masses Cardiovascular/Chest: normal rate, regularly irregular Genitourinary/Rectal: normal genital exam, heme negative stool Extremities: normal range of motion Microbiology Date/Time Source Procedure Growth Status 08/14/17 04:25 Nasal Nares MRSA Culture - Final NO METHICILLIN RESISTANT STAPH AUREUS... Complete 08/14/17 04:25 Rectum VRE Culture - Final NO VANCOMYCIN RESISTANT ENTEROCOCCUS ... Complete Laboratory Tests 08/16/17 06:35: White Blood Count 8.9, Red Blood Count 2.25L, Hemoglobin 7.4L, Hematocrit 22.6L , Mean Corpuscular Volume 100H, Mean Corpuscular Hemoglobin 32.8H, Mean Corpuscular Hemoglobin Concent 32.8, Red Cell Distribution Width 12.5, Platelet Count 201, Mean Platelet Volume 5.4L, Neutrophils (%) (Auto) , Lymphocytes (%) ( Auto) , Monocytes (%) (Auto) , Eosinophils (%) (Auto) , Basophils (%) (Auto) , Differential Total Cells Counted 100, Neutrophils % (Manual) 83H, Lymphocytes % (Manual) 13L, Monocytes % (Manual) 4, Eosinophils % (Manual) 0, Basophils % ( Manual) 0, Band Neutrophils 0, Platelet Estimate Adequate, Platelet Morphology Normal, Hypochromasia 1+, Macrocytosis 1+, Sodium Level 133L, Potassium Level 3.8, Chloride Level 101, Carbon Dioxide Level 31, Anion Gap 1L, Blood Urea Nitrogen 10, Creatinine 0.5L, Estimat Glomerular Filtration Rate , Glucose Level 167H, Calcium Level 7.8L Current Medications Medications (Trade) Dose Ordered Sig/Elke Route PRN Reason Start Time Stop Time Status Last Admin Dose Admin Acetaminophen (Tylenol) 650 mg Q4H PRN ORAL Mild Pain (Pain Scale 1-3) 08/15/17 13:00 09/14/17 12:59 Acetaminophen/ Hydrocodone Bitart ([place] 7.5/325) 1 tab Q4H PRN ORAL Moderate Pain (Pain Scale 4-6) 08/15/17 13:00 08/22/17 12:59 08/16/17 11:50 Bisacodyl (Dulcolax) 10 mg Q12H PRN RECTAL Constipation 08/15/17 13:00 09/14/17 12:59 Celecoxib (CeleBREX) 200 mg DAILY ORAL 08/15/17 09:00 09/14/17 08:59 08/16/17 08:35 Dextrose/ Electrolytes 1,000 ml @ 75 mls/hr [id number] IV 08/15/17 13:30 09/14/17 13:29 08/16/17 04:10 Docusate Sodium (Colace) 100 mg THREE TIMES A DAY ORAL 08/15/17 18:00 09/14/17 17:59 08/16/17 12:38 Enoxaparin Sodium (Lovenox) 30 mg DAILY SUBQ 08/15/17 18:00 09/14/17 17:59 08/16/17 08:39 Hydromorphone HCl (Dilaudid) 1 mg Q4H PRN SUBQ Mild Pain (Pain Scale 1-3) 08/15/17 13:00 08/22/17 12:59 08/16/17 14:39 Magnesium Hydroxide (Mom) 30 ml DAILYPRN PRN ORAL Constipation 08/15/17 13:00 09/14/17 12:59 Steve Moe MD Aug 16, 2017 16:14
[2017-08-16] MEDS: Zolpidem 5mg tab ORAL PRN (23:18)
--- NOTE | 2017-08-16 23:54 | Cardiology Progress Note ---
Assessment/Plan Assessment/Plan 1. Left hip fracture, s/p Left hip ORIF, POD # 2, no perioperative cardiac events, continue DVT prophylaxis. 2. Anemia. 3. Mild pulmonary HTN. Subjective Subjective Denies CP or SOB. s/p left hip ORIF POD #2 Objective Last 24 Hour Vital Signs Date Time Temp Pulse Resp B/P (MAP) Pulse Ox O2 Delivery O2 Flow Rate FiO2 08/16/17 20:00 98.6 89 18 108/68 95 Room Air 98.6 08/16/17 16:10 97.4 82 20 109/61 93 Room Air 97.4 08/16/17 15:09 98.2 08/16/17 14:39 98.2 08/16/17 14:30 98.1 88 20 109/60 Room Air 98.1 08/16/17 13:45 98.2 89 18 110/61 94 Room Air 98.2 08/16/17 12:49 99.1 08/16/17 11:57 210.4 105 18 98 08/16/17 11:50 98.1 08/16/17 11:40 98.1 75 18 98/46 100 Nasal Cannula 3.0 98.1 08/16/17 11:30 97.9 87 19 88/48 98 Nasal Cannula 3.0 97.9 08/16/17 11:00 97.9 77 18 83/43 96 Nasal Cannula 3.0 97.9 08/16/17 10:30 87 88/48 08/16/17 10:30 97.9 62 18 89/48 97 Nasal Cannula 3.0 97.9 08/16/17 08:36 97.9 08/16/17 08:00 97.9 98 20 113/66 98 Nasal Cannula 3.0 97.9 08/16/17 04:00 99.1 105 18 117/58 98 Nasal Cannula 3.0 99.1 08/16/17 00:00 98.6 98 18 111/59 99 Nasal Cannula 3.0 98.6 Intake and Output 08/15/17 08/16/17 19:00 07:00 Intake Total 1695 ml 935 ml Output Total 1100 ml 600 ml Balance 595 ml 335 ml Intake Oral 185 ml IV Total 1260 ml 935 ml Other 250 ml Output Urine Total 850 ml 600 ml Estimated Blood Loss 250 ml 2D Echo: LVEF 60-65%, Mild AR/MR, RVSP 45 mmHg, Grade I LVDD Laboratory Tests Test 08/16/17 06:35 White Blood Count 8.9 K/UL (4.8-10.8) Red Blood Count 2.25 M/UL (4.20-5.40) L Hemoglobin 7.4 G/DL (12.0-16.0) L Hematocrit 22.6 % (37.0-47.0) L Mean Corpuscular Volume 100 FL (80-99) H Mean Corpuscular Hemoglobin 32.8 PG (27.0-31.0) H Mean Corpuscular Hemoglobin Concent 32.8 G/DL (32.0-36.0) Red Cell Distribution Width 12.5 % (11.6-14.8) Platelet Count 201 K/UL (150-450) Mean Platelet Volume 5.4 FL (6.5-10.1) L Neutrophils (%) (Auto) % (45.0-75.0) Lymphocytes (%) (Auto) % (20.0-45.0) Monocytes (%) (Auto) % (1.0-10.0) Eosinophils (%) (Auto) % (0.0-3.0) Basophils (%) (Auto) % (0.0-2.0) Differential Total Cells Counted 100 Neutrophils % (Manual) 83 % (45-75) H Lymphocytes % (Manual) 13 % (20-45) L Monocytes % (Manual) 4 % (1-10) Eosinophils % (Manual) 0 % (0-3) Basophils % (Manual) 0 % (0-2) Band Neutrophils 0 % (0-8) Platelet Estimate Adequate Platelet Morphology Normal Hypochromasia 1+ Macrocytosis 1+ Sodium Level 133 MMOL/L (136-145) L Potassium Level 3.8 MMOL/L (3.5-5.1) Chloride Level 101 MMOL/L (98-107) Carbon Dioxide Level 31 MMOL/L (21-32) Anion Gap 1 mmol/L (5-15) L Blood Urea Nitrogen 10 mg/dL (7-18) Creatinine 0.5 MG/DL (0.55-1.30) L Estimat Glomerular Filtration Rate mL/min (>60) Glucose Level 167 MG/DL (74-106) H Calcium Level 7.8 MG/DL (8.5-10.1) L Microbiology Date/Time Source Procedure Growth Status 08/14/17 04:25 Nasal Nares MRSA Culture - Final NO METHICILLIN RESISTANT STAPH AUREUS... Complete 08/14/17 04:25 Rectum VRE Culture - Final NO VANCOMYCIN RESISTANT ENTEROCOCCUS ... Complete Objective HEENT: Atraumatic and normocephalic. Anicteric. Pupils are equal, round, and reactive to light and accommodation. Extraocular movements are intact. NECK: JVP less than 5 cm. No carotid bruits. Carotid upstrokes 2+ bilaterally. CVS: Normal S1 and S2. Regular rate and rhythm. There is 2/6 mid systolic murmur at the left sternal border. PMI is at 4th intercostal space in the midclavicular line. LUNGS: Clear to auscultation bilaterally. ABDOMEN: Soft, nontender, and nondistended. No hepatosplenomegaly. Positive bowel sounds. EXTREMITIES: The left leg and left external rotation tenderness at the hip. There is no edema, clubbing, or cyanosis. SHANTANU VARGAS Aug 16, 2017 23:54
[2017-08-17] VITALS (7 sets, daily range): BP systolic 100–166; BP diastolic 56–86
[2017-08-17] MEDS: HYDROcodone/Acetamin 7.5/325 tab ORAL PRN ×3 (04:10→22:04)
[2017-08-17] MEDS: Docusate 100mg cap ORAL SCH ×3 (08:51→17:51)
[2017-08-17] MEDS: celeBREX 200mg Cap **SURGERY PATIENTS ONLY ORAL SCH (08:51)
[2017-08-17] MEDS: Enoxaparin 30mg Inj SUBQ SCH (08:52)
[2017-08-17 08:54] LABS: HEMATOCRIT 31.2 % (37.0-47.0); HEMOGLOBIN 10.8 G/DL (12.0-16.0); MEAN CORPUSCULAR VOLUME 94 FL (80-99); PLATELET COUNT 183 K/UL (150-450); RED BLOOD COUNT 3.31 M/UL (4.20-5.40); RED CELL DISTRIBUTION WIDTH 14.7 % (11.6-14.8); WHITE BLOOD COUNT 10.1 K/UL (4.8-10.8)
[2017-08-17 08:57] LABS: ANION GAP 5 mmol/L (5-15); BLOOD UREA NITROGEN 11 mg/dL (7-18); CALCIUM 8.3 MG/DL (8.5-10.1); CARBON DIOXIDE 28 MMOL/L (21-32); CHLORIDE 105 MMOL/L (98-107); CREATININE 0.3 MG/DL (0.55-1.30); POTASSIUM 3.8 MMOL/L (3.5-5.1); SODIUM 138 MMOL/L (136-145)
--- NOTE | 2017-08-17 09:50 | General Progress Note ---
Assessment/Plan Problem List: (1) Parkinson disease ICD Codes: G20 - Parkinson's disease SNOMED: 60207332 (2) Fall ICD Codes: W19.XXXA - Unspecified fall, initial encounter SNOMED: 0401774, 527296451 (3) Intertrochanteric fracture of left femur ICD Codes: S72.142A - Displaced intertrochanteric fracture of left femur, initial encounter for closed fracture SNOMED: 487143652, 634897702 (4) Pain ICD Codes: R52 - Pain, unspecified SNOMED: 65556385 Status: unchanged Assessment/Plan ot pt diet,transfuse cbc bmp am uro eval aru eval Subjective Constitutional: Reports: weakness Allergies: Coded Allergies: No Known Allergies (Unverified , 08/13/17) All Systems: reviewed and negative except above Subjective o2nc sleepy s/p sx Objective Last 24 Hour Vital Signs Date Time Temp Pulse Resp B/P (MAP) Pulse Ox O2 Delivery O2 Flow Rate FiO2 08/17/17 08:00 97.9 121 19 166/86 97 Room Air 97.9 08/17/17 04:15 98.8 107 18 148/85 97 Nasal Cannula 2.0 98.8 08/17/17 01:45 98.0 94 18 121/69 97 Nasal Cannula 2.0 98.0 08/16/17 20:00 98.6 89 18 108/68 95 Room Air 98.6 08/16/17 16:10 97.4 82 20 109/61 93 Room Air 97.4 08/16/17 15:09 98.2 08/16/17 14:39 98.2 08/16/17 14:30 98.1 88 20 109/60 Room Air 98.1 08/16/17 13:45 98.2 89 18 110/61 94 Room Air 98.2 08/16/17 12:49 99.1 08/16/17 11:57 210.4 105 18 98 08/16/17 11:50 98.1 08/16/17 11:40 98.1 75 18 98/46 100 Nasal Cannula 3.0 98.1 08/16/17 11:30 97.9 87 19 88/48 98 Nasal Cannula 3.0 97.9 08/16/17 11:00 97.9 77 18 83/43 96 Nasal Cannula 3.0 97.9 08/16/17 10:30 87 88/48 08/16/17 10:30 97.9 62 18 89/48 97 Nasal Cannula 3.0 97.9 Intake and Output 08/16/17 08/17/17 19:00 07:00 Intake Total 2410.0 ml 300 ml Output Total 1200 ml 700 ml Balance 1210.0 ml -400 ml Intake Oral 960 ml 300 ml IV Total 950.0 ml Blood Product 500 ml Output Urine Total 1200 ml 700 ml Laboratory Tests 08/17/17 08:35: White Blood Count 10.1, Red Blood Count 3.31L, Hemoglobin 10.8#L, Hematocrit 31.2#L, Mean Corpuscular Volume 94, Mean Corpuscular Hemoglobin 32.6H, Mean Corpuscular Hemoglobin Concent 34.6, Red Cell Distribution Width 14.7, Platelet Count 183, Mean Platelet Volume 5.1L, Neutrophils (%) (Auto) , Lymphocytes (%) ( Auto) , Monocytes (%) (Auto) , Eosinophils (%) (Auto) , Basophils (%) (Auto) , Neutrophils % (Manual) [Pending], Lymphocytes % (Manual) [Pending], Platelet Estimate [Pending], Platelet Morphology [Pending], Sodium Level 138, Potassium Level 3.8, Chloride Level 105, Carbon Dioxide Level 28, Anion Gap 5, Blood Urea Nitrogen 11, Creatinine 0.3L, Estimat Glomerular Filtration Rate , Glucose Level 207H, Calcium Level 8.3L Height (Feet): 5 Height (Inches): 2.00 Weight (Pounds): 120 General Appearance: lethargic EENT: normal ENT inspection Neck: normal alignment Cardiovascular: normal peripheral pulses, normal rate, regular rhythm Respiratory/Chest: chest wall non-tender, lungs clear, normal breath sounds Abdomen: normal bowel sounds, non tender, soft Extremities: normal inspection Edema: no edema noted Arm (L), no edema noted Arm (R), no edema noted Leg (L), no edema noted Leg (R), no edema noted Pedal (L), no edema noted Pedal (R), no edema noted Generalized Neurologic: responsive, motor weakness Skin: normal pigmentation, warm/dry COSME CISNEROS Aug 17, 2017 09:50
--- NOTE | 2017-08-17 13:56 | Pulmonology Progress Note ---
Assessment/Plan Problems: (1) Intertrochanteric fracture of left femur (2) Anemia (3) Parkinson disease (4) Pain Assessment/Plan confused ? psych evaluation symptomatic treatment surgery was completed dvt prophylaxis pt/ot after surgery anemia w/u dc planning Subjective ROS Limited/Unobtainable: No Interval Events: confused Allergies: Coded Allergies: No Known Allergies (Unverified , 08/13/17) Objective Last 24 Hour Vital Signs Date Time Temp Pulse Resp B/P (MAP) Pulse Ox O2 Delivery O2 Flow Rate FiO2 08/17/17 12:00 98.3 87 18 108/56 93 Room Air 98.3 08/17/17 08:00 97.9 121 19 166/86 97 Room Air 97.9 08/17/17 04:15 98.8 107 18 148/85 97 Nasal Cannula 2.0 98.8 08/17/17 01:45 98.0 94 18 121/69 97 Nasal Cannula 2.0 98.0 08/16/17 20:00 98.6 89 18 108/68 95 Room Air 98.6 08/16/17 16:10 97.4 82 20 109/61 93 Room Air 97.4 08/16/17 15:09 98.2 08/16/17 14:39 98.2 08/16/17 14:30 98.1 88 20 109/60 Room Air 98.1 Intake and Output 08/16/17 08/17/17 19:00 07:00 Intake Total 2410.0 ml 300 ml Output Total 1200 ml 700 ml Balance 1210.0 ml -400 ml Intake Oral 960 ml 300 ml IV Total 950.0 ml Blood Product 500 ml Output Urine Total 1200 ml 700 ml Objective General Appearance: WD/WN Lines, tubes and drains: peripheral HEENT: normocephalic, atraumatic Neck: non-tender, normal alignment Respiratory/Chest: chest wall non-tender, lungs clear Breasts: no masses Cardiovascular/Chest: normal rate, regularly irregular Genitourinary/Rectal: normal genital exam, heme negative stool Extremities: normal range of motion Laboratory Tests 08/17/17 08:35: White Blood Count 10.1, Red Blood Count 3.31L, Hemoglobin 10.8#L, Hematocrit 31.2#L, Mean Corpuscular Volume 94, Mean Corpuscular Hemoglobin 32.6H, Mean Corpuscular Hemoglobin Concent 34.6, Red Cell Distribution Width 14.7, Platelet Count 183, Mean Platelet Volume 5.1L, Neutrophils (%) (Auto) , Lymphocytes (%) ( Auto) , Monocytes (%) (Auto) , Eosinophils (%) (Auto) , Basophils (%) (Auto) , Differential Total Cells Counted 100, Neutrophils % (Manual) 93H, Lymphocytes % (Manual) 5L, Monocytes % (Manual) 1, Eosinophils % (Manual) 1, Basophils % ( Manual) 0, Band Neutrophils 0, Platelet Estimate Adequate, Platelet Morphology Normal, Anisocytosis 1+, Sodium Level 138, Potassium Level 3.8, Chloride Level 105, Carbon Dioxide Level 28, Anion Gap 5, Blood Urea Nitrogen 11, Creatinine 0.3L, Estimat Glomerular Filtration Rate , Glucose Level 207H, Calcium Level 8.3L Current Medications Medications (Trade) Dose Ordered Sig/Elke Route PRN Reason Start Time Stop Time Status Last Admin Dose Admin Acetaminophen (Tylenol) 650 mg Q4H PRN ORAL Mild Pain (Pain Scale 1-3) 08/15/17 13:00 09/14/17 12:59 Acetaminophen/ Hydrocodone Bitart ([place] 7.5/325) 1 tab Q4H PRN ORAL Moderate Pain (Pain Scale 4-6) 08/15/17 13:00 08/22/17 12:59 08/17/17 04:10 Bisacodyl (Dulcolax) 10 mg Q12H PRN RECTAL Constipation 08/15/17 13:00 09/14/17 12:59 Celecoxib (CeleBREX) 200 mg DAILY ORAL 08/15/17 09:00 09/14/17 08:59 08/17/17 08:51 Docusate Sodium (Colace) 100 mg THREE TIMES A DAY ORAL 08/15/17 18:00 09/14/17 17:59 08/17/17 12:30 Enoxaparin Sodium (Lovenox) 30 mg DAILY SUBQ 08/15/17 18:00 09/14/17 17:59 08/17/17 08:52 Hydromorphone HCl (Dilaudid) 1 mg Q4H PRN SUBQ Mild Pain (Pain Scale 1-3) 08/15/17 13:00 08/22/17 12:59 08/17/17 01:52 Magnesium Hydroxide (Mom) 30 ml DAILYPRN PRN ORAL Constipation 08/15/17 13:00 09/14/17 12:59 Zolpidem Tartrate (Ambien) 5 mg HSPRN PRN ORAL Insomnia 08/16/17 20:30 08/23/17 20:29 08/16/17 23:18 Steve Moe MD Aug 17, 2017 13:56
--- NOTE | 2017-08-17 16:41 | Consultation ---
History of Present Illness General Date patient seen: Aug 17, 2017 Time patient seen: 16:37 Chief Complaint: Multiple Trauma/Fall Referring physician: Aleksey Reason for Consultation: urinary retention Present Illness HPI 82 yo female, upper sorbian speaking, recovering from left hip fracture repair yesterday. Had retention after surgery. initially had in and out, and ultimately had hunter replaced this AM due to persistent retention. Per patient , she states urination has been difficult before surgery, but significantly more difficulty since surgery. Patient does have hx of Parkinson's disease. pain is well managed in her opinion. Ambulating partially with max assist. Allergies: Coded Allergies: No Known Allergies (Unverified , 08/13/17) Medication History Scheduled Atorvastatin Calcium* (Atorvastatin Calcium*), 10 MG ORAL BEDTIME, (Reported) Carbidopa/Levodopa 25-100 Mg* (Sinemet 25-100 Mg Tablet*), 1 TAB ORAL THREE TIMES A DAY, (Reported) Famotidine (Famotidine), 20 MG ORAL DAILY, (Reported) Gabapentin* (Gabapentin*), 300 MG ORAL BEDTIME, (Reported) Meloxicam* (Meloxicam*), 15 MG PO DAILY, (Reported) Mirtazapine* (Mirtazapine*), 15 MG ORAL BEDTIME, (Reported) Scheduled PRN Acetaminophen* (Acetaminophen 325MG Tablet*), 325 MG ORAL Q4H PRN for For Pain, (Reported) Melatonin (Melatonin), 5 MG ORAL BEDTIME PRN for Insomnia, (Reported) Miscellaneous Medications Dextran 70/Hypromellose (Artificial Tears Eye Drops*), 1 DROP BOTH EYES, ( Reported) Patient History Limited by: language barrier History Provided By: Patient, Medical Record Healthcare decision maker Resuscitation status Advanced Directive on File Past Medical/Surgical History Past Medical/Surgical History: (1) Parkinson disease (2) Fall Review of Systems All Other Systems: negative except mentioned in HPI Physical Exam General Appearance: no apparent distress HEENT: normocephalic, atraumatic Respiratory/Chest: lungs clear Cardiovascular/Chest: normal rate Abdomen: soft Genitourinary/Rectal: hunter Extremities: non-tender Skin Exam: warm/dry Neurologic: alert, oriented x 3 Last 24 Hour Vital Signs Date Time Temp Pulse Resp B/P (MAP) Pulse Ox O2 Delivery O2 Flow Rate FiO2 08/17/17 16:00 99.3 109 18 158/84 95 Room Air 99.3 08/17/17 12:00 98.3 87 18 108/56 93 Room Air 98.3 08/17/17 08:00 97.9 121 19 166/86 97 Room Air 97.9 08/17/17 04:15 98.8 107 18 148/85 97 Nasal Cannula 2.0 98.8 08/17/17 01:45 98.0 94 18 121/69 97 Nasal Cannula 2.0 98.0 08/16/17 20:00 98.6 89 18 108/68 95 Room Air 98.6 Intake and Output 08/16/17 08/17/17 19:00 07:00 Intake Total 2410.0 ml 300 ml Output Total 1200 ml 700 ml Balance 1210.0 ml -400 ml Intake Oral 960 ml 300 ml IV Total 950.0 ml Blood Product 500 ml Output Urine Total 1200 ml 700 ml Laboratory Tests Test 08/17/17 08:35 White Blood Count 10.1 K/UL (4.8-10.8) Red Blood Count 3.31 M/UL (4.20-5.40) L Hemoglobin 10.8 G/DL (12.0-16.0) #L Hematocrit 31.2 % (37.0-47.0) #L Mean Corpuscular Volume 94 FL (80-99) Mean Corpuscular Hemoglobin 32.6 PG (27.0-31.0) H Mean Corpuscular Hemoglobin Concent 34.6 G/DL (32.0-36.0) Red Cell Distribution Width 14.7 % (11.6-14.8) Platelet Count 183 K/UL (150-450) Mean Platelet Volume 5.1 FL (6.5-10.1) L Neutrophils (%) (Auto) % (45.0-75.0) Lymphocytes (%) (Auto) % (20.0-45.0) Monocytes (%) (Auto) % (1.0-10.0) Eosinophils (%) (Auto) % (0.0-3.0) Basophils (%) (Auto) % (0.0-2.0) Differential Total Cells Counted 100 Neutrophils % (Manual) 93 % (45-75) H Lymphocytes % (Manual) 5 % (20-45) L Monocytes % (Manual) 1 % (1-10) Eosinophils % (Manual) 1 % (0-3) Basophils % (Manual) 0 % (0-2) Band Neutrophils 0 % (0-8) Platelet Estimate Adequate Platelet Morphology Normal Anisocytosis 1+ Sodium Level 138 MMOL/L (136-145) Potassium Level 3.8 MMOL/L (3.5-5.1) Chloride Level 105 MMOL/L (98-107) Carbon Dioxide Level 28 MMOL/L (21-32) Anion Gap 5 mmol/L (5-15) Blood Urea Nitrogen 11 mg/dL (7-18) Creatinine 0.3 MG/DL (0.55-1.30) L Estimat Glomerular Filtration Rate mL/min (>60) Glucose Level 207 MG/DL (74-106) H Calcium Level 8.3 MG/DL (8.5-10.1) L Height (Feet): 5 Height (Inches): 2.00 Weight (Pounds): 120 Medications Current Medications Medications (Trade) Dose Ordered Sig/Elke Route PRN Reason Start Time Stop Time Status Last Admin Dose Admin Acetaminophen (Tylenol) 650 mg Q4H PRN ORAL Mild Pain (Pain Scale 1-3) 08/15/17 13:00 09/14/17 12:59 Acetaminophen/ Hydrocodone Bitart ([place] 7.5/325) 1 tab Q4H PRN ORAL Moderate Pain (Pain Scale 4-6) 08/15/17 13:00 08/22/17 12:59 08/17/17 14:14 Bisacodyl (Dulcolax) 10 mg Q12H PRN RECTAL Constipation 08/15/17 13:00 09/14/17 12:59 Celecoxib (CeleBREX) 200 mg DAILY ORAL 08/15/17 09:00 09/14/17 08:59 08/17/17 08:51 Docusate Sodium (Colace) 100 mg THREE TIMES A DAY ORAL 08/15/17 18:00 09/14/17 17:59 08/17/17 12:30 Enoxaparin Sodium (Lovenox) 30 mg DAILY SUBQ 08/15/17 18:00 09/14/17 17:59 08/17/17 08:52 Hydromorphone HCl (Dilaudid) 1 mg Q4H PRN SUBQ Mild Pain (Pain Scale 1-3) 08/15/17 13:00 08/22/17 12:59 08/17/17 01:52 Magnesium Hydroxide (Mom) 30 ml DAILYPRN PRN ORAL Constipation 08/15/17 13:00 09/14/17 12:59 Zolpidem Tartrate (Ambien) 5 mg HSPRN PRN ORAL Insomnia 08/16/17 20:30 08/23/17 20:29 08/16/17 23:18 Assessment/Plan Status: stable Assessment/Plan 82 yo female with hx of Parkinson's disease and left hip fracture repair. Patient had post op retention requiring one in and out catheterization and ultimately hunter placed this AM. 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 Recommend maintaining hunter for 48 hours , allowing patient to rehab and mobilize more. As pain medication requirement decreases and ambulation increases, patient should be able to void normally. 1. pain management 2. mobilization per Ortho and PT recs 3. repeat voiding trial in 48 hours. Lefty Cooley M.D. Aug 17, 2017 16:41
[2017-08-17] MEDS: Zolpidem 5mg tab ORAL PRN (20:26)
--- NOTE | 2017-08-17 22:13 | Cardiology Progress Note ---
Assessment/Plan Assessment/Plan 1. Left hip fracture, s/p Left hip ORIF, POD # 3, no perioperative cardiac events, continue DVT prophylaxis. 2. Sinus tachycardia at 119, proceed with 12 lead ECG. 3. Anemia. 4. Mild pulmonary HTN. Subjective Subjective Denies CP or SOB. s/p left hip ORIF POD #3 Objective Last 24 Hour Vital Signs Date Time Temp Pulse Resp B/P (MAP) Pulse Ox O2 Delivery O2 Flow Rate FiO2 08/17/17 20:06 98.9 103 16 143/75 97 Room Air 98.9 08/17/17 16:00 99.3 109 18 158/84 95 Room Air 99.3 18 12:00 98.3 87 18 108/56 93 Room Air 98.3 08/17/17 08:00 97.9 121 19 166/86 97 Room Air 97.9 08/17/17 04:15 98.8 107 18 148/85 97 Nasal Cannula 2.0 98.8 08/17/17 01:45 98.0 94 18 121/69 97 Nasal Cannula 2.0 98.0 Intake and Output 18 08/17/17 19:00 07:00 Intake Total 2410.0 ml 300 ml Output Total 1200 ml 700 ml Balance 1210.0 ml -400 ml Intake Oral 960 ml 300 ml IV Total 950.0 ml Blood Product 500 ml Output Urine Total 1200 ml 700 ml 2D Echo: LVEF 60-65%, Mild AR/MR, RVSP 45 mmHg, Grade I LVDD Laboratory Tests Test 08/17/17 08:35 White Blood Count 10.1 K/UL (4.8-10.8) Red Blood Count 3.31 M/UL (4.20-5.40) L Hemoglobin 10.8 G/DL (12.0-16.0) #L Hematocrit 31.2 % (37.0-47.0) #L Mean Corpuscular Volume 94 FL (80-99) Mean Corpuscular Hemoglobin 32.6 PG (27.0-31.0) H Mean Corpuscular Hemoglobin Concent 34.6 G/DL (32.0-36.0) Red Cell Distribution Width 14.7 % (11.6-14.8) Platelet Count 183 K/UL (150-450) Mean Platelet Volume 5.1 FL (6.5-10.1) L Neutrophils (%) (Auto) % (45.0-75.0) Lymphocytes (%) (Auto) % (20.0-45.0) Monocytes (%) (Auto) % (1.0-10.0) Eosinophils (%) (Auto) % (0.0-3.0) Basophils (%) (Auto) % (0.0-2.0) Differential Total Cells Counted 100 Neutrophils % (Manual) 93 % (45-75) H Lymphocytes % (Manual) 5 % (20-45) L Monocytes % (Manual) 1 % (1-10) Eosinophils % (Manual) 1 % (0-3) Basophils % (Manual) 0 % (0-2) Band Neutrophils 0 % (0-8) Platelet Estimate Adequate Platelet Morphology Normal Anisocytosis 1+ Sodium Level 138 MMOL/L (136-145) Potassium Level 3.8 MMOL/L (3.5-5.1) Chloride Level 105 MMOL/L (98-107) Carbon Dioxide Level 28 MMOL/L (21-32) Anion Gap 5 mmol/L (5-15) Blood Urea Nitrogen 11 mg/dL (7-18) Creatinine 0.3 MG/DL (0.55-1.30) L Estimat Glomerular Filtration Rate mL/min (>60) Glucose Level 207 MG/DL (74-106) H Calcium Level 8.3 MG/DL (8.5-10.1) L Objective HEENT: Atraumatic and normocephalic. Anicteric. Pupils are equal, round, and reactive to light and accommodation. Extraocular movements are intact. NECK: JVP less than 5 cm. No carotid bruits. Carotid upstrokes 2+ bilaterally. CVS: Normal S1 and S2. Tachycardic. Regular rate and rhythm. There is 2/6 mid systolic murmur at the left sternal border. PMI is at 4th intercostal space in the midclavicular line. LUNGS: Clear to auscultation bilaterally. ABDOMEN: Soft, nontender, and nondistended. No hepatosplenomegaly. Positive bowel sounds. EXTREMITIES: The left leg and left external rotation tenderness at the hip. There is no edema, clubbing, or cyanosis. SHANTANU VARGAS Aug 17, 2017 22:12
[2017-08-18 04:28] VITALS: BP 136/79
[2017-08-18 07:25] LABS: BASOPHILS % (AUTO) 0.3 % (0.0-2.0); HEMATOCRIT 31.9 % (37.0-47.0); HEMOGLOBIN 10.6 G/DL (12.0-16.0); LYMPHOCYTES % (AUTO) 13.7 % (20.0-45.0); MEAN CORPUSCULAR VOLUME 95 FL (80-99); MONOCYTES % (AUTO) 5.2 % (1.0-10.0); NEUTROPHILS % (AUTO) 79.8 % (45.0-75.0); PLATELET COUNT 205 K/UL (150-450); RED BLOOD COUNT 3.35 M/UL (4.20-5.40); RED CELL DISTRIBUTION WIDTH 14.1 % (11.6-14.8); WHITE BLOOD COUNT 9.4 K/UL (4.8-10.8)
[2017-08-18 07:39] LABS: ANION GAP 6 mmol/L (5-15); BLOOD UREA NITROGEN 11 mg/dL (7-18); CALCIUM 8.7 MG/DL (8.5-10.1); CARBON DIOXIDE 29 MMOL/L (21-32); CHLORIDE 103 MMOL/L (98-107); CREATININE 0.4 MG/DL (0.55-1.30); POTASSIUM 3.7 MMOL/L (3.5-5.1); SODIUM 138 MMOL/L (136-145)
[2017-08-18 08:00] VITALS: BP 132/81
--- NOTE | 2017-08-18 08:44 | General Progress Note ---
Assessment/Plan Problem List: (1) Parkinson disease ICD Codes: G20 - Parkinson's disease SNOMED: 25339893 (2) Fall ICD Codes: W19.XXXA - Unspecified fall, initial encounter SNOMED: 1172898, 045321857 (3) Intertrochanteric fracture of left femur ICD Codes: S72.142A - Displaced intertrochanteric fracture of left femur, initial encounter for closed fracture SNOMED: 420024058, 137643305 (4) Pain ICD Codes: R52 - Pain, unspecified SNOMED: 15062411 Status: stable, progressing, tolerating diet Assessment/Plan ot pt diet,transfuse cbc bmp am uro eval aru eval Subjective Allergies: Coded Allergies: No Known Allergies (Unverified , 08/13/17) All Systems: reviewed and negative except above Subjective o2nc sleepy s/p sx Objective Last 24 Hour Vital Signs Date Time Temp Pulse Resp B/P (MAP) Pulse Ox O2 Delivery O2 Flow Rate FiO2 08/18/17 08:00 97.7 101 20 132/81 94 97.7 08/18/17 04:28 98.4 106 20 136/79 96 Room Air 98.4 08/17/17 23:53 98.8 110 17 132/81 96 Room Air 98.8 08/17/17 20:06 98.9 103 16 143/75 97 Room Air 98.9 08/17/17 16:00 99.3 109 18 158/84 95 Room Air 99.3 08/17/17 12:00 98.3 87 18 108/56 93 Room Air 98.3 Intake and Output 08/17/17 08/18/17 19:00 07:00 Intake Total 700 ml 120 ml Output Total 43669 ml 800 ml Balance -9599 ml -680 ml Intake Oral 120 ml Other 700 ml Output Urine Total 16600 ml 800 ml Stool Total 0 ml # Bowel Movements 2 Laboratory Tests 08/18/17 06:35: White Blood Count 9.4, Red Blood Count 3.35L, Hemoglobin 10.6L, Hematocrit 31.9L , Mean Corpuscular Volume 95, Mean Corpuscular Hemoglobin 31.7H, Mean Corpuscular Hemoglobin Concent 33.3, Red Cell Distribution Width 14.1, Platelet Count 205, Mean Platelet Volume 5.7L, Neutrophils (%) (Auto) 79.8H, Lymphocytes (%) (Auto) 13.7L, Monocytes (%) (Auto) 5.2, Eosinophils (%) (Auto) 1.0, Basophils (%) (Auto) 0.3, Sodium Level 138, Potassium Level 3.7, Chloride Level 103, Carbon Dioxide Level 29, Anion Gap 6, Blood Urea Nitrogen 11, Creatinine 0.4L, Estimat Glomerular Filtration Rate , Glucose Level 113H, Calcium Level 8.7 Height (Feet): 5 Height (Inches): 2.00 Weight (Pounds): 120 General Appearance: lethargic EENT: normal ENT inspection Neck: normal alignment Cardiovascular: normal peripheral pulses, normal rate, regular rhythm Respiratory/Chest: chest wall non-tender, lungs clear, normal breath sounds Abdomen: normal bowel sounds, non tender, soft Extremities: normal inspection Edema: no edema noted Arm (L), no edema noted Arm (R), no edema noted Leg (L), no edema noted Leg (R), no edema noted Pedal (L), no edema noted Pedal (R), no edema noted Generalized Neurologic: responsive, motor weakness Skin: normal pigmentation, warm/dry COSME CISNEROS Aug 18, 2017 08:44
[2017-08-18] MEDS: Docusate 100mg cap ORAL SCH ×3 (08:49→18:33)
[2017-08-18] MEDS: Enoxaparin 30mg Inj SUBQ SCH (08:49)
[2017-08-18] MEDS: celeBREX 200mg Cap **SURGERY PATIENTS ONLY ORAL SCH (08:50)
[2017-08-18 12:00] VITALS: BP 126/66
--- NOTE | 2017-08-18 12:17 | Pulmonology Progress Note ---
Assessment/Plan Problems: (1) Intertrochanteric fracture of left femur (2) Anemia (3) Parkinson disease (4) Pain Assessment/Plan confused no new complains symptomatic treatment surgery was completed dvt prophylaxis pt/ot after surgery anemia w/u dc planning Subjective ROS Limited/Unobtainable: No Constitutional: Reports: no symptoms HEENT: Repors: no symptoms Respiratory: Reports: no symptoms Allergies: Coded Allergies: No Known Allergies (Unverified , 08/13/17) Objective Last 24 Hour Vital Signs Date Time Temp Pulse Resp B/P (MAP) Pulse Ox O2 Delivery O2 Flow Rate FiO2 08/18/17 08:00 97.7 101 20 132/81 94 97.7 08/18/17 04:28 98.4 106 20 136/79 96 Room Air 98.4 08/17/17 23:53 98.8 110 17 132/81 96 Room Air 98.8 08/17/17 20:06 98.9 103 16 143/75 97 Room Air 98.9 08/17/17 16:00 99.3 109 18 158/84 95 Room Air 99.3 Intake and Output 08/17/17 08/18/17 19:00 07:00 Intake Total 700 ml 120 ml Output Total 08857 ml 800 ml Balance -9599 ml -680 ml Intake Oral 120 ml Other 700 ml Output Urine Total 01668 ml 800 ml Stool Total 0 ml # Bowel Movements 2 Objective General Appearance: WD/WN Lines, tubes and drains: peripheral HEENT: normocephalic, atraumatic Neck: non-tender, normal alignment Respiratory/Chest: chest wall non-tender, lungs clear Breasts: no masses Cardiovascular/Chest: normal rate, regularly irregular Genitourinary/Rectal: normal genital exam, heme negative stool Extremities: normal range of motion Laboratory Tests 08/18/17 06:35: White Blood Count 9.4, Red Blood Count 3.35L, Hemoglobin 10.6L, Hematocrit 31.9L , Mean Corpuscular Volume 95, Mean Corpuscular Hemoglobin 31.7H, Mean Corpuscular Hemoglobin Concent 33.3, Red Cell Distribution Width 14.1, Platelet Count 205, Mean Platelet Volume 5.7L, Neutrophils (%) (Auto) 79.8H, Lymphocytes (%) (Auto) 13.7L, Monocytes (%) (Auto) 5.2, Eosinophils (%) (Auto) 1.0, Basophils (%) (Auto) 0.3, Sodium Level 138, Potassium Level 3.7, Chloride Level 103, Carbon Dioxide Level 29, Anion Gap 6, Blood Urea Nitrogen 11, Creatinine 0.4L, Estimat Glomerular Filtration Rate , Glucose Level 113H, Calcium Level 8.7 Current Medications Medications (Trade) Dose Ordered Sig/Elke Route PRN Reason Start Time Stop Time Status Last Admin Dose Admin Acetaminophen (Tylenol) 650 mg Q4H PRN ORAL Mild Pain (Pain Scale 1-3) 08/15/17 13:00 09/14/17 12:59 Acetaminophen/ Hydrocodone Bitart ([place] 7.5/325) 1 tab Q4H PRN ORAL Moderate Pain (Pain Scale 4-6) 08/15/17 13:00 08/22/17 12:59 08/17/17 22:04 Bisacodyl (Dulcolax) 10 mg Q12H PRN RECTAL Constipation 08/15/17 13:00 09/14/17 12:59 Celecoxib (CeleBREX) 200 mg DAILY ORAL 08/15/17 09:00 09/14/17 08:59 08/18/17 08:50 Docusate Sodium (Colace) 100 mg THREE TIMES A DAY ORAL 08/15/17 18:00 09/14/17 17:59 08/18/17 08:49 Enoxaparin Sodium (Lovenox) 30 mg DAILY SUBQ 08/15/17 18:00 09/14/17 17:59 08/18/17 08:49 Hydromorphone HCl (Dilaudid) 1 mg Q4H PRN SUBQ Mild Pain (Pain Scale 1-3) 08/15/17 13:00 08/22/17 12:59 08/17/17 01:52 Magnesium Hydroxide (Mom) 30 ml DAILYPRN PRN ORAL Constipation 08/15/17 13:00 09/14/17 12:59 Zolpidem Tartrate (Ambien) 5 mg HSPRN PRN ORAL Insomnia 08/16/17 20:30 08/23/17 20:29 08/17/17 20:26 Steve Moe MD Aug 18, 2017 12:17
[2017-08-18 16:00] VITALS: BP 101/58
[2017-08-18] MEDS: HYDROcodone/Acetamin 7.5/325 tab ORAL PRN (19:42)
[2017-08-18 19:53] VITALS: BP 110/70
--- NOTE | 2017-08-18 19:53 | Cardiology Progress Note ---
Assessment/Plan Assessment/Plan 1. Left hip fracture, s/p Left hip ORIF, POD # , hemodynamically stable, continue DVT prophylaxis. 2. Sinus tachycardia, resolved. 3. Anemia. 4. Mild pulmonary HTN. Subjective Subjective Denies CP or SOB. s/p left hip ORIF POD #4 Objective Last 24 Hour Vital Signs Date Time Temp Pulse Resp B/P (MAP) Pulse Ox O2 Delivery O2 Flow Rate FiO2 08/18/17 16:00 98.2 98 18 101/58 95 Room Air 98.2 08/18/17 12:00 97.3 97 20 126/66 95 97.3 08/18/17 12:00 Room Air 08/18/17 08:00 97.7 101 20 132/81 94 97.7 08/18/17 08:00 Room Air 08/18/17 04:28 98.4 106 20 136/79 96 Room Air 98.4 08/17/17 23:53 98.8 110 17 132/81 96 Room Air 98.8 08/17/17 20:06 98.9 103 16 143/75 97 Room Air 98.9 Intake and Output 08/17/17 08/18/17 19:00 07:00 Intake Total 700 ml 120 ml Output Total 17881 ml 800 ml Balance -9599 ml -680 ml Intake Oral 120 ml Other 700 ml Output Urine Total 37775 ml 800 ml Stool Total 0 ml # Bowel Movements 2 2D Echo: LVEF 60-65%, Mild AR/MR, RVSP 45 mmHg, Grade I LVDD Laboratory Tests Test 08/18/17 06:35 08/18/17 15:50 White Blood Count 9.4 K/UL (4.8-10.8) Red Blood Count 3.35 M/UL (4.20-5.40) L Hemoglobin 10.6 G/DL (12.0-16.0) L Hematocrit 31.9 % (37.0-47.0) L Mean Corpuscular Volume 95 FL (80-99) Mean Corpuscular Hemoglobin 31.7 PG (27.0-31.0) H Mean Corpuscular Hemoglobin Concent 33.3 G/DL (32.0-36.0) Red Cell Distribution Width 14.1 % (11.6-14.8) Platelet Count 205 K/UL (150-450) Mean Platelet Volume 5.7 FL (6.5-10.1) L Neutrophils (%) (Auto) 79.8 % (45.0-75.0) H Lymphocytes (%) (Auto) 13.7 % (20.0-45.0) L Monocytes (%) (Auto) 5.2 % (1.0-10.0) Eosinophils (%) (Auto) 1.0 % (0.0-3.0) Basophils (%) (Auto) 0.3 % (0.0-2.0) Sodium Level 138 MMOL/L (136-145) Potassium Level 3.7 MMOL/L (3.5-5.1) Chloride Level 103 MMOL/L (98-107) Carbon Dioxide Level 29 MMOL/L (21-32) Anion Gap 6 mmol/L (5-15) Blood Urea Nitrogen 11 mg/dL (7-18) Creatinine 0.4 MG/DL (0.55-1.30) L Estimat Glomerular Filtration Rate mL/min (>60) Glucose Level 113 MG/DL (74-106) H Calcium Level 8.7 MG/DL (8.5-10.1) Stool Occult Blood Pending Objective HEENT: Atraumatic and normocephalic. Anicteric. Pupils are equal, round, and reactive to light and accommodation. Extraocular movements are intact. NECK: JVP less than 5 cm. No carotid bruits. Carotid upstrokes 2+ bilaterally. CVS: Normal S1 and S2. Regular rate and rhythm. There is 2/6 mid systolic murmur at the left sternal border. PMI is at 4th intercostal space in the midclavicular line. LUNGS: Clear to auscultation bilaterally. ABDOMEN: Soft, nontender, and nondistended. No hepatosplenomegaly. Positive bowel sounds. EXTREMITIES: The left leg and left external rotation tenderness at the hip. There is no edema, clubbing, or cyanosis. SHANTANU VARGAS Aug 18, 2017 19:53
[2017-08-18] MEDS: Zolpidem 5mg tab ORAL PRN (20:56)
[2017-08-19 00:03] VITALS: BP 140/76
[2017-08-19] MEDS: HYDROcodone/Acetamin 7.5/325 tab ORAL PRN ×4 (03:21→18:05)
[2017-08-19 04:09] VITALS: BP 111/60
[2017-08-19 05:32] LABS: BASOPHILS % (AUTO) 0.7 % (0.0-2.0); EOSINOPHILS % (AUTO) 2.9 % (0.0-3.0); HEMATOCRIT 28.8 % (37.0-47.0); HEMOGLOBIN 9.6 G/DL (12.0-16.0); LYMPHOCYTES % (AUTO) 19.5 % (20.0-45.0); MEAN CORPUSCULAR VOLUME 96 FL (80-99); MONOCYTES % (AUTO) 7.2 % (1.0-10.0); NEUTROPHILS % (AUTO) 69.8 % (45.0-75.0); PLATELET COUNT 224 K/UL (150-450); RED BLOOD COUNT 3.01 M/UL (4.20-5.40); WHITE BLOOD COUNT 6.3 K/UL (4.8-10.8)
[2017-08-19 05:53] LABS: ANION GAP 5 mmol/L (5-15); BLOOD UREA NITROGEN 19 mg/dL (7-18); CALCIUM 8.4 MG/DL (8.5-10.1); CARBON DIOXIDE 29 MMOL/L (21-32); CHLORIDE 103 MMOL/L (98-107); CREATININE 0.5 MG/DL (0.55-1.30); SODIUM 137 MMOL/L (136-145)
[2017-08-19 07:19] VITALS: BP 111/63
--- NOTE | 2017-08-19 07:54 | Cardiology Progress Note ---
Assessment/Plan Assessment/Plan 1. Left hip fracture, s/p Left hip ORIF, POD #5 , hemodynamically stable, continue DVT prophylaxis. Plan is for transfer to a rehab center. 2. Sinus tachycardia, resolved. 3. Anemia. 4. Mild pulmonary HTN. Subjective Subjective Denies CP or SOB. s/p left hip ORIF POD #5 Objective Last 24 Hour Vital Signs Date Time Temp Pulse Resp B/P (MAP) Pulse Ox O2 Delivery O2 Flow Rate FiO2 08/19/17 07:19 97.8 89 20 111/63 96 Room Air 97.8 08/19/17 04:09 97.9 87 19 111/60 93 97.9 08/19/17 00:03 97.8 91 18 140/76 95 97.8 08/18/17 19:53 97.8 107 20 110/70 94 97.8 08/18/17 16:00 98.2 98 18 101/58 95 Room Air 98.2 08/18/17 12:00 97.3 97 20 126/66 95 97.3 08/18/17 12:00 Room Air 08/18/17 08:00 97.7 101 20 132/81 94 97.7 08/18/17 08:00 Room Air Intake and Output 08/18/17 08/19/17 19:00 07:00 Intake Total 400 ml 480 ml Output Total 301 ml 250 ml Balance 99 ml 230 ml Intake Oral 480 ml Other 400 ml Output Urine Total 300 ml 250 ml Stool Total 1 ml # Bowel Movements 1 2D Echo: LVEF 60-65%, Mild AR/MR, RVSP 45 mmHg, Grade I LVDD Laboratory Tests Test 08/18/17 15:50 08/19/17 05:25 Stool Occult Blood Pending White Blood Count 6.3 K/UL (4.8-10.8) Red Blood Count 3.01 M/UL (4.20-5.40) L Hemoglobin 9.6 G/DL (12.0-16.0) L Hematocrit 28.8 % (37.0-47.0) L Mean Corpuscular Volume 96 FL (80-99) Mean Corpuscular Hemoglobin 32.0 PG (27.0-31.0) H Mean Corpuscular Hemoglobin Concent 33.4 G/DL (32.0-36.0) Red Cell Distribution Width 14.0 % (11.6-14.8) Platelet Count 224 K/UL (150-450) Mean Platelet Volume 5.4 FL (6.5-10.1) L Neutrophils (%) (Auto) 69.8 % (45.0-75.0) Lymphocytes (%) (Auto) 19.5 % (20.0-45.0) L Monocytes (%) (Auto) 7.2 % (1.0-10.0) Eosinophils (%) (Auto) 2.9 % (0.0-3.0) Basophils (%) (Auto) 0.7 % (0.0-2.0) Sodium Level 137 MMOL/L (136-145) Potassium Level 4.0 MMOL/L (3.5-5.1) Chloride Level 103 MMOL/L (98-107) Carbon Dioxide Level 29 MMOL/L (21-32) Anion Gap 5 mmol/L (5-15) Blood Urea Nitrogen 19 mg/dL (7-18) H Creatinine 0.5 MG/DL (0.55-1.30) L Estimat Glomerular Filtration Rate mL/min (>60) Glucose Level 103 MG/DL (74-106) Calcium Level 8.4 MG/DL (8.5-10.1) L Objective HEENT: Atraumatic and normocephalic. Anicteric. Pupils are equal, round, and reactive to light and accommodation. Extraocular movements are intact. NECK: JVP less than 5 cm. No carotid bruits. Carotid upstrokes 2+ bilaterally. CVS: Normal S1 and S2. Regular rate and rhythm. There is 2/6 mid systolic murmur at the left sternal border. PMI is at 4th intercostal space in the midclavicular line. LUNGS: Clear to auscultation bilaterally. ABDOMEN: Soft, nontender, and nondistended. No hepatosplenomegaly. Positive bowel sounds. EXTREMITIES: The left leg and left external rotation tenderness at the hip. There is no edema, clubbing, or cyanosis. SHANTANU VARGAS Aug 19, 2017 07:54
[2017-08-19] MEDS: Docusate 100mg cap ORAL SCH ×3 (09:02→18:04)
[2017-08-19] MEDS: celeBREX 200mg Cap **SURGERY PATIENTS ONLY ORAL SCH (09:02)
[2017-08-19] MEDS: Enoxaparin 30mg Inj SUBQ SCH (09:04)
--- NOTE | 2017-08-19 09:10 | Consultation ---
History of Present Illness General Chief Complaint: Multiple Trauma/Fall Referring physician: Aleksey Reason for Consultation: urinary retention Present Illness Allergies: Coded Allergies: No Known Allergies (Unverified , 08/13/17) Medication History Scheduled Atorvastatin Calcium* (Atorvastatin Calcium*), 10 MG ORAL BEDTIME, (Reported) Carbidopa/Levodopa 25-100 Mg* (Sinemet 25-100 Mg Tablet*), 1 TAB ORAL THREE TIMES A DAY, (Reported) Famotidine (Famotidine), 20 MG ORAL DAILY, (Reported) Gabapentin* (Gabapentin*), 300 MG ORAL BEDTIME, (Reported) Meloxicam* (Meloxicam*), 15 MG PO DAILY, (Reported) Mirtazapine* (Mirtazapine*), 15 MG ORAL BEDTIME, (Reported) Scheduled PRN Acetaminophen* (Acetaminophen 325MG Tablet*), 325 MG ORAL Q4H PRN for For Pain, (Reported) Melatonin (Melatonin), 5 MG ORAL BEDTIME PRN for Insomnia, (Reported) Miscellaneous Medications Dextran 70/Hypromellose (Artificial Tears Eye Drops*), 1 DROP BOTH EYES, ( Reported) Patient History Healthcare decision maker Resuscitation status Advanced Directive on File Physical Exam Last 24 Hour Vital Signs Date Time Temp Pulse Resp B/P (MAP) Pulse Ox O2 Delivery O2 Flow Rate FiO2 08/19/17 09:03 97.8 08/19/17 07:19 97.8 89 20 111/63 96 Room Air 97.8 08/19/17 04:09 97.9 87 19 111/60 93 97.9 08/19/17 00:03 97.8 91 18 140/76 95 97.8 08/18/17 19:53 97.8 107 20 110/70 94 97.8 08/18/17 16:00 98.2 98 18 101/58 95 Room Air 98.2 08/18/17 12:00 97.3 97 20 126/66 95 97.3 08/18/17 12:00 Room Air Intake and Output 08/18/17 08/19/17 19:00 07:00 Intake Total 400 ml 480 ml Output Total 301 ml 250 ml Balance 99 ml 230 ml Intake Oral 480 ml Other 400 ml Output Urine Total 300 ml 250 ml Stool Total 1 ml # Bowel Movements 1 Laboratory Tests Test 08/18/17 15:50 08/19/17 05:25 Stool Occult Blood Pending White Blood Count 6.3 K/UL (4.8-10.8) Red Blood Count 3.01 M/UL (4.20-5.40) L Hemoglobin 9.6 G/DL (12.0-16.0) L Hematocrit 28.8 % (37.0-47.0) L Mean Corpuscular Volume 96 FL (80-99) Mean Corpuscular Hemoglobin 32.0 PG (27.0-31.0) H Mean Corpuscular Hemoglobin Concent 33.4 G/DL (32.0-36.0) Red Cell Distribution Width 14.0 % (11.6-14.8) Platelet Count 224 K/UL (150-450) Mean Platelet Volume 5.4 FL (6.5-10.1) L Neutrophils (%) (Auto) 69.8 % (45.0-75.0) Lymphocytes (%) (Auto) 19.5 % (20.0-45.0) L Monocytes (%) (Auto) 7.2 % (1.0-10.0) Eosinophils (%) (Auto) 2.9 % (0.0-3.0) Basophils (%) (Auto) 0.7 % (0.0-2.0) Sodium Level 137 MMOL/L (136-145) Potassium Level 4.0 MMOL/L (3.5-5.1) Chloride Level 103 MMOL/L (98-107) Carbon Dioxide Level 29 MMOL/L (21-32) Anion Gap 5 mmol/L (5-15) Blood Urea Nitrogen 19 mg/dL (7-18) H Creatinine 0.5 MG/DL (0.55-1.30) L Estimat Glomerular Filtration Rate mL/min (>60) Glucose Level 103 MG/DL (74-106) Calcium Level 8.4 MG/DL (8.5-10.1) L Height (Feet): 5 Height (Inches): 2.00 Weight (Pounds): 120 Medications Current Medications Medications (Trade) Dose Ordered Sig/Elke Route PRN Reason Start Time Stop Time Status Last Admin Dose Admin Acetaminophen (Tylenol) 650 mg Q4H PRN ORAL Mild Pain (Pain Scale 1-3) 08/15/17 13:00 09/14/17 12:59 Acetaminophen/ Hydrocodone Bitart ([place] 7.5/325) 1 tab Q4H PRN ORAL Moderate Pain (Pain Scale 4-6) 08/15/17 13:00 08/22/17 12:59 08/19/17 09:03 Bisacodyl (Dulcolax) 10 mg Q12H PRN RECTAL Constipation 08/15/17 13:00 09/14/17 12:59 Celecoxib (CeleBREX) 200 mg DAILY ORAL 08/15/17 09:00 09/14/17 08:59 08/19/17 09:02 Docusate Sodium (Colace) 100 mg THREE TIMES A DAY ORAL 08/15/17 18:00 09/14/17 17:59 08/19/17 09:02 Enoxaparin Sodium (Lovenox) 30 mg DAILY SUBQ 08/15/17 18:00 09/14/17 17:59 08/19/17 09:04 Hydromorphone HCl (Dilaudid) 1 mg Q4H PRN SUBQ Mild Pain (Pain Scale 1-3) 08/15/17 13:00 08/22/17 12:59 08/18/17 14:45 Magnesium Hydroxide (Mom) 30 ml DAILYPRN PRN ORAL Constipation 08/15/17 13:00 09/14/17 12:59 Zolpidem Tartrate (Ambien) 5 mg HSPRN PRN ORAL Insomnia 08/16/17 20:30 08/23/17 20:29 08/18/17 20:56 Assessment/Plan Assessment/Plan (1) Left hip pain (2) Left hip fracture (3) S/p ORIF seen dictated ELOINA GREGORY Aug 19, 2017 09:10
[2017-08-19 11:36] VITALS: BP 115/64
--- NOTE | 2017-08-19 12:58 | Pulmonology Progress Note ---
Assessment/Plan Problems: (1) Intertrochanteric fracture of left femur (2) Anemia (3) Parkinson disease (4) Pain Assessment/Plan no new complains no new complains symptomatic treatment surgery was completed dvt prophylaxis pt/ot after surgery anemia w/u dc planning Subjective ROS Limited/Unobtainable: No Constitutional: Reports: no symptoms Respiratory: Reports: wheezing Genitourinary: Reports: no symptoms Neurologic: Reports: no symptoms Allergies: Coded Allergies: No Known Allergies (Unverified , 08/13/17) Objective Last 24 Hour Vital Signs Date Time Temp Pulse Resp B/P (MAP) Pulse Ox O2 Delivery O2 Flow Rate FiO2 08/19/17 11:36 98.0 80 19 115/64 94 Room Air 98.0 08/19/17 10:02 97.8 08/19/17 09:03 97.8 08/19/17 07:19 97.8 89 20 111/63 96 Room Air 97.8 08/19/17 04:09 97.9 87 19 111/60 93 97.9 08/19/17 00:03 97.8 91 18 140/76 95 97.8 08/18/17 19:53 97.8 107 20 110/70 94 97.8 08/18/17 16:00 98.2 98 18 101/58 95 Room Air 98.2 Intake and Output 08/18/17 08/19/17 19:00 07:00 Intake Total 400 ml 480 ml Output Total 301 ml 250 ml Balance 99 ml 230 ml Intake Oral 480 ml Other 400 ml Output Urine Total 300 ml 250 ml Stool Total 1 ml # Bowel Movements 1 Objective General Appearance: WD/WN Lines, tubes and drains: peripheral HEENT: normocephalic, atraumatic Neck: non-tender, normal alignment Respiratory/Chest: chest wall non-tender, lungs clear Breasts: no masses Cardiovascular/Chest: normal rate, regularly irregular Genitourinary/Rectal: normal genital exam, heme negative stool Extremities: normal range of motion Laboratory Tests 08/18/17 15:50: Stool Occult Blood Negative 08/19/17 05:25: White Blood Count 6.3, Red Blood Count 3.01L, Hemoglobin 9.6L, Hematocrit 28.8L , Mean Corpuscular Volume 96, Mean Corpuscular Hemoglobin 32.0H, Mean Corpuscular Hemoglobin Concent 33.4, Red Cell Distribution Width 14.0, Platelet Count 224, Mean Platelet Volume 5.4L, Neutrophils (%) (Auto) 69.8, Lymphocytes ( %) (Auto) 19.5L, Monocytes (%) (Auto) 7.2, Eosinophils (%) (Auto) 2.9, Basophils (%) (Auto) 0.7, Sodium Level 137, Potassium Level 4.0, Chloride Level 103, Carbon Dioxide Level 29, Anion Gap 5, Blood Urea Nitrogen 19H, Creatinine 0.5L, Estimat Glomerular Filtration Rate , Glucose Level 103, Calcium Level 8.4L Current Medications Medications (Trade) Dose Ordered Sig/Elke Route PRN Reason Start Time Stop Time Status Last Admin Dose Admin Acetaminophen (Tylenol) 650 mg Q4H PRN ORAL Mild Pain (Pain Scale 1-3) 08/15/17 13:00 09/14/17 12:59 Acetaminophen/ Hydrocodone Bitart ([place] 7.5/325) 1 tab Q4H PRN ORAL Moderate Pain (Pain Scale 4-6) 08/15/17 13:00 08/22/17 12:59 08/19/17 09:03 Bisacodyl (Dulcolax) 10 mg Q12H PRN RECTAL Constipation 08/15/17 13:00 09/14/17 12:59 Celecoxib (CeleBREX) 200 mg DAILY ORAL 08/15/17 09:00 09/14/17 08:59 08/19/17 09:02 Docusate Sodium (Colace) 100 mg THREE TIMES A DAY ORAL 08/15/17 18:00 09/14/17 17:59 08/19/17 09:02 Enoxaparin Sodium (Lovenox) 30 mg DAILY SUBQ 08/15/17 18:00 09/14/17 17:59 08/19/17 09:04 Hydromorphone HCl (Dilaudid) 1 mg Q4H PRN SUBQ Severe Breakthru Pain (>7) 08/19/17 09:15 08/22/17 09:14 Lidocaine (Lidoderm 5% PATCH) 1 patch DAILY TDERMAL 08/20/17 09:00 09/19/17 08:59 Magnesium Hydroxide (Mom) 30 ml DAILYPRN PRN ORAL Constipation 08/15/17 13:00 09/14/17 12:59 Zolpidem Tartrate (Ambien) 5 mg HSPRN PRN ORAL Insomnia 08/16/17 20:30 08/23/17 20:29 08/18/17 20:56 Steve Moe MD Aug 19, 2017 12:58
--- NOTE | 2017-08-19 14:02 | General Progress Note ---
Assessment/Plan Problem List: (1) Parkinson disease ICD Codes: G20 - Parkinson's disease SNOMED: 69601393 (2) Fall ICD Codes: W19.XXXA - Unspecified fall, initial encounter SNOMED: 3787973, 933194873 (3) Intertrochanteric fracture of left femur ICD Codes: S72.142A - Displaced intertrochanteric fracture of left femur, initial encounter for closed fracture SNOMED: 996350606, 618215560 (4) Pain ICD Codes: R52 - Pain, unspecified SNOMED: 19789786 Status: stable, progressing, tolerating diet Assessment/Plan ot pt diet,transfuse dc to aru Subjective Constitutional: Reports: weakness Allergies: Coded Allergies: No Known Allergies (Unverified , 08/13/17) Subjective calm s/p sx Objective Last 24 Hour Vital Signs Date Time Temp Pulse Resp B/P (MAP) Pulse Ox O2 Delivery O2 Flow Rate FiO2 08/19/17 11:36 98.0 80 19 115/64 94 Room Air 98.0 08/19/17 10:02 97.8 08/19/17 09:03 97.8 08/19/17 07:19 97.8 89 20 111/63 96 Room Air 97.8 08/19/17 04:09 97.9 87 19 111/60 93 97.9 08/19/17 00:03 97.8 91 18 140/76 95 97.8 08/18/17 19:53 97.8 107 20 110/70 94 97.8 08/18/17 16:00 98.2 98 18 101/58 95 Room Air 98.2 Intake and Output 08/18/17 08/19/17 19:00 07:00 Intake Total 400 ml 480 ml Output Total 301 ml 250 ml Balance 99 ml 230 ml Intake Oral 480 ml Other 400 ml Output Urine Total 300 ml 250 ml Stool Total 1 ml # Bowel Movements 1 Laboratory Tests 08/18/17 15:50: Stool Occult Blood Negative 08/19/17 05:25: White Blood Count 6.3, Red Blood Count 3.01L, Hemoglobin 9.6L, Hematocrit 28.8L , Mean Corpuscular Volume 96, Mean Corpuscular Hemoglobin 32.0H, Mean Corpuscular Hemoglobin Concent 33.4, Red Cell Distribution Width 14.0, Platelet Count 224, Mean Platelet Volume 5.4L, Neutrophils (%) (Auto) 69.8, Lymphocytes ( %) (Auto) 19.5L, Monocytes (%) (Auto) 7.2, Eosinophils (%) (Auto) 2.9, Basophils (%) (Auto) 0.7, Sodium Level 137, Potassium Level 4.0, Chloride Level 103, Carbon Dioxide Level 29, Anion Gap 5, Blood Urea Nitrogen 19H, Creatinine 0.5L, Estimat Glomerular Filtration Rate , Glucose Level 103, Calcium Level 8.4L Height (Feet): 5 Height (Inches): 2.00 Weight (Pounds): 120 General Appearance: alert EENT: normal ENT inspection Neck: normal alignment Cardiovascular: normal peripheral pulses, normal rate, regular rhythm Respiratory/Chest: chest wall non-tender, lungs clear, normal breath sounds Abdomen: normal bowel sounds, non tender, soft Extremities: normal inspection Edema: no edema noted Arm (L), no edema noted Arm (R), no edema noted Leg (L), no edema noted Leg (R), no edema noted Pedal (L), no edema noted Pedal (R), no edema noted Generalized Neurologic: responsive, motor weakness Skin: normal pigmentation, warm/dry COSME CISNEROS Aug 19, 2017 14:02
[2017-08-19] MEDS ORDERED: BISACODYL SUPP (16:30)
[2017-08-19] MEDS ORDERED: CELEBREX200 MG ORAL (16:30)
[2017-08-19] MEDS ORDERED: COLACE100 MG ORAL (16:31)
[2017-08-19] MEDS ORDERED: LOVENOX10 MG SUBQ (16:31)
[2017-08-19] MEDS ORDERED: NORCO1 E1 ORAL (16:32)
[2017-08-19] MEDS ORDERED: LIDOCAINE PATCH (16:33)
[2017-08-19] MEDS ORDERED: AMBIEN5 MG ORAL (16:34)
[2017-08-19] MEDS ORDERED: MILK OF MA400 MG/51 ORAL (16:34)
[2017-08-19 16:46] VITALS: BP 122/72
[2017-08-19] MEDS ORDERED: Tubing IV Secondary IV ONE (18:11)
[2017-08-19] MEDS ORDERED: NS 275ml ONE (18:11)
[2017-08-19] MEDS ORDERED: Tubing Blood Filter IV ONE (18:11)
--- NOTE | 2017-08-19 22:15 | Consultation ---
DATE OF CONSULTATION: 08/19/2017 PAIN MANAGEMENT CONSULTATION CONSULTING PHYSICIAN: Walter Fragoso M.D. REFERRING PHYSICIAN: Emiliano Ryder D.O. PHYSICIAN [employer] LENS TECHNICIAN: Dhruv Chambers CHIEF COMPLAINT: Left hip pain. HISTORY OF PRESENT ILLNESS: This is an 82-year-old female, who is being seen on the Medical/Surgical floor of [facility] for initial comprehensive pain management consultation. The patient was admitted under the care of Dr. Ryder on 08/13/2017 due to fall causing left hip fracture, status post open reduction and internal fixation, which was done on 08/15/2017. At this time, the patient is on Dilaudid 1 mg subcutaneous every 4 hours as needed for mild pain and [place] 7.5/325 mg one tablet every 4 hours as needed for moderate pain. The patient has the best of her ability. We were consulted so that the patient would have adequate pain control while here in the hospital for her faster recovery. PAST MEDICAL HISTORY: Parkinson disease. PAST SURGICAL HISTORY: Right hip hemiarthroplasty. MEDICATIONS: Atorvastatin, Sinemet, famotidine, Neurontin, meloxicam, mirtazapine, and melatonin. REVIEW OF SYSTEMS: Denies rash, fever, chills, sweating, dizziness, drowsiness, blurred vision, sore throat, or change in weight. No shortness of breath or chest pain. No nausea, vomiting, diarrhea, or blood in the stool or urine. No bowel or bladder incontinence. No dysuria. Complaining of left hip pain. PHYSICAL EXAMINATION: GENERAL: Alert, awake, and oriented x3. VITAL SIGNS: Blood pressure 111/63, heart rate is 89, oxygen saturation is 96%, respirations 20, and temperature is 97.8 degrees Fahrenheit. HEENT: PERRLA. NECK: Range of motion is full in all directions. No tenderness to paraspinal muscles. No adenopathy. LUNGS: Clear. HEART: Regular. ABDOMEN: Benign. BACK: Range of motion is full on flexion and extension. EXTREMITIES: Upper extremity range of motion is full in all directions. Motor is intact. No cyanosis. No clubbing. No edema. Sensory is intact. Reflexes are not obtainable. No adenopathy. Lower extremity range of motion is decreased due to the patient's current condition. Left hip tenderness to palpation. Surgical wound noted and bandages applied. No cyanosis. No clubbing. No edema. Sensory is intact. Reflexes are unobtainable. No adenopathy. ASSESSMENT AND PLAN: This is an 82-year-old female with left hip pain, left hip fracture, status post open reduction and internal fixation. Dilaudid will be changed to 1 mg subcutaneous every 4 hours as needed for severe breakthrough pain. We will continue [place] for moderate pain and Lidoderm patch to be applied to the left hip at the site of pain, 12 hours on and 12 hours off. The patient was discussed with Dr. Fragoso and Dr. Fragoso concurred. We will follow the patient. Thank you very much for the courtesy of this consultation. Walter Fragoso M.D. SAEID Chambers DR: JONNATHAN JOB#: [id number] CC:
--- NOTE | 2017-08-20 10:08 | Discharge Summary ---
Discharge Summary Discharge Summary Discharge Summary DATE OF ADMISSION:08/13/2017 DATE OF DISCHARGE: 08/19/2017 REASON FOR ADMISSION: 82 years old female with a history of Parkinson disease , who was able to ambulate on the baseline, was brought by paramedics after fall in assisted living. Patient reported head pain as well as the pain in the left hip. Patient reported inability to ambulate. Upon evaluation in emergency room, CT of the head revealed no acute intracranial pathology but showed chronic age- related changes. CT of the left hip revealed left hip intertrochanteric fracture. Patient was admitted for further management. CONSULTANTS: compliance spec Dr. Martinez pulmonary Dr. Moe ortho surgeon dr Jayashree M.D. Pain specialist Dr. Fragoso HOSPITAL COURSE: Patient was admitted to medical surgical floor. Cardiology and pulmonology followed up closely. Echocardiogram revealed preserved ejection fraction of 60-65% and right ventricular systolic pressure of 43 , consistent with a mild pulmonary hypertension. No evidence of left ventricular hypertrophy. EKG revealed sinus rhythm, no acute ischemic changes. Patient was cleared for surgery with risk of coronary artery events preoperatively estimated to be less than 1% as per compliance spec. Patient subsequently undergone left hip hemiarthroplasty. Postoperative recovery was uneventful. Patient was working with physical and occupational therapists. Fall precautions were maintained. Patient was noted to be anemic and subsequently was transfused with two units of packed red blood cells on August 16 for hemoglobin- 7.4 hematocrit -22.6. The next day hemoglobin up to 10.8 and hematocrit 31.2. Hemoglobin and hematocrit remained stable until the day of transfer. interlibrary loan specialist closely followed. Pain management was addressed as per pain specialist recommendations. DVT prophylaxis provided. Supplemental oxygen provided as needed to keep pulse oximetry above 92%. Home medications were resumed. Patient noted to have urinary retention after surgery. Initially she had straight in and out catheterization and subsequently Briscoe catheter was placed. Urology consult was requested. Urologist recommended out of bed and ambulated as tolerated and repeat voiding trial in 48-72 hours. According to physical and occupational therapists recommendations patient needed extensive rehabilitation. Transfer was arranged to acute rehabilitation unit in [facility]. Patient was stable for transfer. FINAL DIAGNOSES: Left hip intertrochanteric fracture secondary to fall Status post left hip hemiarthroplasty Head contusion Parkinson disease Anemia status post blood transfusion Mild pulmonary hypertension Urinary retention DISCHARGE MEDICATIONS: See Medication Reconciliation list. DISCHARGE INSTRUCTIONS: Patient was discharged to acute rehabilitation unit at [facility]. Follow up with medical provider at the facility. Voiding trial to be done in 48 hours as per urology recommendations. Follow up with the surgeon in 2 weeks. I have been assigned to dictate discharge summary for this account. I was not involved in the patient's management. Ivonne Aleman NP ([place]) Aug 20, 2017 10:08
== END 2017-08-19 19:50 | disposition short-term general hospital (02) | DRG 470 ==
LOC: EDBD 14:18 → EMR 14:49 → 3E 15:27 → EDBEDREQ 16:01 → 3E 19:39
PROC: 0SRS0JZ Replacement of Left Hip Joint, Femoral Surface with Synthetic Substitute, Open Approach (ICD-10-PCS; principal; 2017-08-15 06:45)
DX: S72.142A Displaced intertrochanteric fracture of left femur, initial encounter for closed fracture (principal); S72.115A Nondisplaced fracture of greater trochanter of left femur, initial encounter for closed fracture; W19.XXXA Unspecified fall, initial encounter; Y92.099 Unspecified place in other non-institutional residence as the place of occurrence of the external cause; D64.9 Anemia, unspecified; G20 Parkinson's disease; S00.93XA Contusion of unspecified part of head, initial encounter; R33.9 Retention of urine, unspecified; R00.0 Tachycardia, unspecified; I27.20 Pulmonary hypertension, unspecified
CPT/HCPCS: 36415; 70450; 72170; 80048; 80053; 82270; 82378; 82607; 82746; 82962; 83540; 83550; 83615; 83690; 84443; 85007; 85025; 85044; 85060; 85610; 85651; 85730; 86850; 86900; 86901; 86920; 87081; 93005; 93306; 94003; 94150; 99285; J2250